=== PATIENT | female | born 1930 | race Two or more races ===

== ENCOUNTER 2016-07-02 22:17 | Inpatient (IN) | payer MEDICARE, MEDICAID ==
[~2016-07-02] VITALS: Ht 165.1 cm; Wt 98.4 kg
[2016-07-02] MEDS ORDERED: IV NS 0.9% 1,000 ML ONE (22:30)
[2016-07-02] MEDS ORDERED: IV NS 0.9% 1,000 ML BAG IV ONE (22:30)
[2016-07-02] MEDS ORDERED: IV SET PRIMARY 1 EA INFUS.SET MC ONE (22:30)
[2016-07-02 22:56] LABS: DIFF TOTAL % 100 %; HEMATOCRIT 47 % (33-45); HEMOGLOBIN 15.2 g/dL (11.5-14.8); INR 1.16 (0.87-1.13); LYMPHOCYTES # (AUTO) 1.2 /CMM (0.8-4.8); LYMPHOCYTES % (AUTO) 8.2 % (20.0-44.0); MEAN CORPUSCULAR HEMOGLOBIN 29 PG (26.0-33.0); MEAN CORPUSCULAR HGB CONC 32 g/dl (31.0-36.0); MEAN CORPUSCULAR VOLUME 89 fL (82-100); MONOCYTES # (AUTO) 1.2 /CMM (0.1-1.30); MONOCYTES % (AUTO) 8.7 % (2.0-12.0); NEUTROPHILS # (AUTO) 11.8 /CMM (1.8-8.9); NEUTROPHILS % (AUTO) 83.1 % (43.0-81.0); PLATELET COUNT (AUTO) 498 /CMM (150-450); PROTHROMBIN TIME 12.6 SECS (9.5-12.7); RED BLOOD CELL COUNT(AUTO) 5.29 MIL/uL (4.0-5.2); WHITE BLOOD COUNT (AUTO) 14.1 K/uL (4.3-11.0)
[2016-07-02 23:00] LABS: ALBUMIN 3.1 g/dL (3.4-5.0); BILIRUBIN,DIRECT 1.9 mg/dL (0.0-0.2); BILIRUBIN,TOTAL 2.5 mg/dL (0.2-1.0); CALCIUM, SERUM 9.2 mg/dL (8.5-10.1); CREATININE 2.7 mg/dL (0.6-1.3); INDIRECT BILIRUBIN 0.6 mg/dL (0.0-1.1); POTASSIUM 4.8 mmol/L (3.5-5.1)
[2016-07-02 23:12] LABS: TROPONIN I 0.155 ng/mL (0.00-0.056)
[2016-07-02 23:14] LABS: TOTAL PROTEIN, SERUM 7.7 g/dL (6.4-8.2)
[2016-07-02 23:39] LABS: KETONES,URINE NEGATIVE (NEGATIVE); LEUKOCYTE ESTERASE ,URINE NEGATIVE (NEGATIVE); PH,URINE 5.5 (5.0-8.0)
[2016-07-02 23:43] LABS: ADD UA MICROSCOPIC YES
[2016-07-02] MEDS ORDERED: IBUP-1955 PO (23:45)
[2016-07-02] MEDS ORDERED: DICY10CA13 PO (23:45)
[2016-07-02] MEDS ORDERED: OMEG1CAP55 PO (23:45)
[2016-07-02] MEDS ORDERED: GLIM2TAB2 PO (23:45)
[2016-07-02] MEDS ORDERED: CALC500T51 PO (23:45)
[2016-07-02] MEDS ORDERED: SITA1TAB6 PO (23:45)
[2016-07-02] MEDS ORDERED: ESOM40CA PO (23:45)
[2016-07-02] MEDS ORDERED: CAPT25TA3 PO (23:45)
[2016-07-02] MEDS ORDERED: COLC0.6T69 PO (23:45)
[2016-07-02] MEDS ORDERED: LORA10TA50 PO (23:45)
[2016-07-02] MEDS ORDERED: MELO-264 PO (23:45)
[2016-07-02 23:55] LABS: ADD URINE CULTURE NO; WBC,URINE 0-2 /HPF (0-3)
[2016-07-03] VITALS (7 sets, daily range): BP systolic 128–150; BP diastolic 61–97
[2016-07-03] MEDS ORDERED: ASPIRIN 325 MG TABLET PO ONE
[2016-07-03] MEDS ORDERED: ASPIRIN 325 MG TABLET ONE (00:07)
[2016-07-03] MEDS ORDERED: IV NS 0.9% 1,000 ML IV PRN ×2 (00:37→09:23)
[2016-07-03] MEDS ORDERED: Z GUARD REMEDY 2 OZ OINT TP PRN (01:00)
[2016-07-03] MEDS ORDERED: ONDANSETRON HCL/PF 4 MG/2 ML VIAL IVP PRN (01:00)
[2016-07-03] MEDS ORDERED: MAG HYDROX/AL HYDROX/SIMETH 30 ML UDC PO PRN (01:00)
[2016-07-03] MEDS ORDERED: ACETAMINOPHEN 325 MG TABLET PO PRN (01:00)
[2016-07-03] MEDS ORDERED: ENOXAPARIN SODIUM 30 MG/0.3 ML DISP.SYRIN SQ SCH ×2 (01:00→21:00)
[2016-07-03] MEDS ORDERED: HYDROCODONE/APAP 5/325MG 1 EACH TABLET PO PRN (01:00)
[2016-07-03] MEDS ORDERED: MAGNESIUM HYDROXIDE 30 ML UDC PO PRN (01:00)
[2016-07-03] MEDS ORDERED: ENOXAPARIN SODIUM 30 MG/0.3 ML DISP.SYRIN ONE (01:20)
[2016-07-03] MEDS ORDERED: DEXTROSE 50%-WATER 50 ML DISP.SYRIN IV PRN (01:30)
[2016-07-03] MEDS ORDERED: IV SET PRIMARY PUMP SET 1 EA INFUS.SET MC ONE (05:06)
[2016-07-03] MEDS ORDERED: IV NS 0.9% 1,000 ML ONE (05:06)
[2016-07-03] MEDS: BLOOD SUGAR DIAGNOSTIC 1 EACH STRIP VI SCH ×4 (05:47→21:57)
[2016-07-03] MEDS: CALCIUM CARBONATE (1250) 500 MG TABLET PO SCH (08:43)
[2016-07-03] MEDS: ASPIRIN 325 MG TABLET PO SCH (08:43)
[2016-07-03] MEDS: LORATADINE 10 MG TABLET PO SCH (08:43)
[2016-07-03] MEDS: PANTOPRAZOLE 40 MG TABLET.DR PO SCH (08:44)
[2016-07-03 09:49] LABS: THYROID STIMULATING HORMONE 2.812 uIU/mL (0.358-3.74)
[2016-07-03] MEDS: DICYCLOMINE HCL 10 MG CAPSULE PO SCH ×2 (10:10→16:27)
[2016-07-03] MEDS: COLCHICINE 0.6 MG TABLET PO SCH (11:23)
[2016-07-03] MEDS: INSULIN REGULAR, HUMAN 100 UNIT/ML 3 ML VIAL SQ PRN ×2 (11:35→17:42)
[2016-07-03] MEDS: IV NS 0.9% 1,000 ML IV PRN (15:18)
[2016-07-03 16:12] LABS: KETONES,URINE TRACE (NEGATIVE); LEUKOCYTE ESTERASE ,URINE TRACE (NEGATIVE)
[2016-07-03 16:30] LABS: ADD UA MICROSCOPIC YES
[2016-07-03 16:31] LABS: CREATININE, URINE 107.7 MG/DL (30.0-125.0); URINE TOTAL PROTEIN 62.3 mg/dL (0-11.9)
[2016-07-03 16:34] LABS: ADD URINE CULTURE YES
[2016-07-03] MEDS: HEPARIN SODIUM, PORCINE 5000 UNITS/1 ML VIAL SQ SCH (21:57)
[2016-07-03] MEDS: *INSULIN REGULAR(HUMULIN R)HUM 100 UNIT/ML VIAL SQ PRN (22:08)
[2016-07-04] VITALS (7 sets, daily range): BP systolic 140–151; BP diastolic 62–84
[2016-07-04 06:39] LABS: BASOPHILS % (AUTO) 0.3 % (0.0-2.0); DIFF TOTAL % 100 %; EOSINOPHILS # (AUTO) 0.1 /CMM (0.0-0.7); EOSINOPHILS % (AUTO) 1.2 % (0.0-6.0); HEMATOCRIT 38 % (33-45); HEMOGLOBIN 12.7 g/dL (11.5-14.8); LYMPHOCYTES # (AUTO) 0.9 /CMM (0.8-4.8); LYMPHOCYTES % (AUTO) 10.3 % (20.0-44.0); MEAN CORPUSCULAR HEMOGLOBIN 30 PG (26.0-33.0); MEAN CORPUSCULAR HGB CONC 33 g/dl (31.0-36.0); MEAN CORPUSCULAR VOLUME 89 fL (82-100); MONOCYTES # (AUTO) 0.5 /CMM (0.1-1.30); NEUTROPHILS # (AUTO) 7.3 /CMM (1.8-8.9); NEUTROPHILS % (AUTO) 82.2 % (43.0-81.0); PLATELET COUNT (AUTO) 365 /CMM (150-450); WHITE BLOOD COUNT (AUTO) 8.9 K/uL (4.3-11.0)
[2016-07-04 06:43] LABS: ALBUMIN 2.2 g/dL (3.4-5.0); BILIRUBIN,TOTAL 1.6 mg/dL (0.2-1.0); CALCIUM, SERUM 8.1 mg/dL (8.5-10.1); CREATININE 1.2 mg/dL (0.6-1.3); PHOSPHORUS 2.6 mg/dL (2.5-4.9); POTASSIUM 3.9 mmol/L (3.5-5.1); TOTAL PROTEIN, SERUM 5.5 g/dL (6.4-8.2)
[2016-07-04] MEDS: BLOOD SUGAR DIAGNOSTIC 1 EACH STRIP VI SCH ×4 (07:30→22:28)
[2016-07-04] MEDS: PANTOPRAZOLE 40 MG TABLET.DR PO SCH (08:22)
[2016-07-04] MEDS: ASPIRIN 325 MG TABLET PO SCH (08:22)
[2016-07-04] MEDS: CALCIUM CARBONATE (1250) 500 MG TABLET PO SCH (08:22)
[2016-07-04] MEDS: COLCHICINE 0.6 MG TABLET PO SCH (08:22)
[2016-07-04] MEDS: LORATADINE 10 MG TABLET PO SCH (08:22)
[2016-07-04] MEDS: DICYCLOMINE HCL 10 MG CAPSULE PO SCH ×2 (08:22→17:05)
[2016-07-04] MEDS: HEPARIN SODIUM, PORCINE 5000 UNITS/1 ML VIAL SQ SCH ×2 (08:31→21:29)
[2016-07-04 09:51] LABS: CREATINE KINASE MB 8.4 ng/mL (0-3.6)
[2016-07-04] MEDS: IV NS 0.9% 1,000 ML IV PRN (11:27)
[2016-07-04] MEDS: INSULIN REGULAR, HUMAN 100 UNIT/ML 3 ML VIAL SQ PRN ×2 (12:14→17:03)
[2016-07-04 15:48] LABS: KETONES,URINE NEGATIVE (NEGATIVE); LEUKOCYTE ESTERASE ,URINE NEGATIVE (NEGATIVE)
[2016-07-04 15:51] LABS: ADD UA MICROSCOPIC YES
[2016-07-04 15:55] LABS: CREATININE, URINE 68.5 MG/DL (30.0-125.0); URINE TOTAL PROTEIN 43.7 mg/dL (0-11.9)
[2016-07-04 16:08] LABS: ADD URINE CULTURE NO; RBC,URINE 0-2 /HPF (0-2); WBC,URINE 0-2 /HPF (0-3)
[2016-07-05] VITALS (7 sets, daily range): BP systolic 124–152; BP diastolic 41–87
[2016-07-05] MEDS ORDERED: DILTIAZEM HCL 50 MG IV IV PRN (01:00)
[2016-07-05] MEDS ORDERED: DILTIAZEM HCL 25 MG IV ONE (01:19)
[2016-07-05] MEDS: ASPIRIN 325 MG TABLET PO SCH (08:14)
[2016-07-05] MEDS: DICYCLOMINE HCL 10 MG CAPSULE PO SCH ×2 (08:14→16:57)
[2016-07-05] MEDS: CALCIUM CARBONATE (1250) 500 MG TABLET PO SCH (08:14)
[2016-07-05] MEDS: PANTOPRAZOLE 40 MG TABLET.DR PO SCH (08:14)
[2016-07-05] MEDS: COLCHICINE 0.6 MG TABLET PO SCH (08:14)
[2016-07-05] MEDS: LORATADINE 10 MG TABLET PO SCH (08:14)
[2016-07-05] MEDS: BLOOD SUGAR DIAGNOSTIC 1 EACH STRIP VI SCH ×4 (08:15→21:25)
[2016-07-05 08:18] LABS: BASOPHILS % (AUTO) 0.2 % (0.0-2.0); DIFF TOTAL % 100 %; EOSINOPHILS # (AUTO) 0.4 /CMM (0.0-0.7); EOSINOPHILS % (AUTO) 5.2 % (0.0-6.0); HEMATOCRIT 39 % (33-45); LYMPHOCYTES # (AUTO) 1.7 /CMM (0.8-4.8); LYMPHOCYTES % (AUTO) 20.9 % (20.0-44.0); MEAN CORPUSCULAR HEMOGLOBIN 30 PG (26.0-33.0); MEAN CORPUSCULAR HGB CONC 33 g/dl (31.0-36.0); MEAN CORPUSCULAR VOLUME 90 fL (82-100); MONOCYTES # (AUTO) 0.8 /CMM (0.1-1.30); MONOCYTES % (AUTO) 10.3 % (2.0-12.0); NEUTROPHILS # (AUTO) 5.1 /CMM (1.8-8.9); NEUTROPHILS % (AUTO) 63.4 % (43.0-81.0); PLATELET COUNT (AUTO) 362 /CMM (150-450); RED BLOOD CELL COUNT(AUTO) 4.36 MIL/uL (4.0-5.2); WHITE BLOOD COUNT (AUTO) 8.1 K/uL (4.3-11.0)
[2016-07-05 08:24] LABS: TROPONIN I 0.076 ng/mL (0.00-0.056)
[2016-07-05] MEDS: HEPARIN SODIUM, PORCINE 5000 UNITS/1 ML VIAL SQ SCH ×2 (08:24→21:23)
[2016-07-05 08:25] LABS: BILIRUBIN,TOTAL 0.6 mg/dL (0.2-1.0); CALCIUM, SERUM 8.3 mg/dL (8.5-10.1); POTASSIUM 4.2 mmol/L (3.5-5.1); TOTAL PROTEIN, SERUM 5.4 g/dL (6.4-8.2)
[2016-07-05 10:48] LABS: INR 1.26 (0.87-1.13); PROTHROMBIN TIME 13.6 SECS (9.5-12.7)
[2016-07-05 11:09] LABS: *SPE ALBUMIN 2.3 g/dL (2.9-4.4)
[2016-07-05] MEDS: DILTIAZEM HCL CD 240 MG PO SCH (11:16)
[2016-07-05] MEDS: IV NS 0.9% 1,000 ML IV PRN ×2 (11:20→22:36)
[2016-07-05 12:10] LABS: HEPATITIS C VIRUS AB <0.1 s/co ratio (0.0-0.9); PTH, INTACT 70 pg/mL (15-65)
[2016-07-05] MEDS ORDERED: IOHEXOL 50 ML IV ONE (12:19)
[2016-07-05] MEDS ORDERED: ROCURONIUM BROMIDE 50 MG/5 ML ONE (13:00)
[2016-07-05] MEDS ORDERED: [UNRECOGNIZED DRUG - OTHER] MC ONE (13:16)
[2016-07-05] MEDS ORDERED: GLUCAGON,HUMAN RECOMBINANT 1 MG/VIAL VIAL ONE (13:38)
[2016-07-05] MEDS: INSULIN REGULAR, HUMAN 100 UNIT/ML 3 ML VIAL SQ PRN (18:02)
[2016-07-05 18:08] LABS: *ANAANTI-SCLERODERMA-70 AB <0.2 AI (0.0-0.9)
[2016-07-05] MEDS: *INSULIN REGULAR(HUMULIN R)HUM 100 UNIT/ML VIAL SQ PRN (21:25)
[2016-07-06] VITALS: BP 133/79
[2016-07-06 04:05] VITALS: BP 148/83
[2016-07-06] MEDS: BLOOD SUGAR DIAGNOSTIC 1 EACH STRIP VI SCH ×3 (05:48→17:30)
[2016-07-06] MEDS: IV NS 0.9% 1,000 ML IV PRN (05:49)
[2016-07-06] MEDS: INSULIN REGULAR, HUMAN 100 UNIT/ML 3 ML VIAL SQ PRN ×2 (05:52→11:52)
[2016-07-06 06:57] VITALS: BP 139/80
[2016-07-06 07:06] LABS: BASOPHILS % (AUTO) 0.2 % (0.0-2.0); DIFF TOTAL % 100 %; EOSINOPHILS % (AUTO) 0.1 % (0.0-6.0); HEMATOCRIT 40 % (33-45); HEMOGLOBIN 13.1 g/dL (11.5-14.8); LYMPHOCYTES # (AUTO) 1.4 /CMM (0.8-4.8); LYMPHOCYTES % (AUTO) 14.7 % (20.0-44.0); MEAN CORPUSCULAR HEMOGLOBIN 29 PG (26.0-33.0); MEAN CORPUSCULAR HGB CONC 33 g/dl (31.0-36.0); MEAN CORPUSCULAR VOLUME 91 fL (82-100); MONOCYTES # (AUTO) 0.9 /CMM (0.1-1.30); MONOCYTES % (AUTO) 9.1 % (2.0-12.0); NEUTROPHILS # (AUTO) 7.3 /CMM (1.8-8.9); NEUTROPHILS % (AUTO) 75.9 % (43.0-81.0); PLATELET COUNT (AUTO) 475 /CMM (150-450); RED BLOOD CELL COUNT(AUTO) 4.45 MIL/uL (4.0-5.2); WHITE BLOOD COUNT (AUTO) 9.6 K/uL (4.3-11.0)
[2016-07-06 07:25] LABS: POTASSIUM 4.8 mmol/L (3.5-5.1)
[2016-07-06] MEDS: PANTOPRAZOLE 40 MG TABLET.DR PO SCH (07:50)
[2016-07-06 08:00] VITALS: BP 144/82
[2016-07-06 08:14] LABS: ALBUMIN 2.2 g/dL (3.4-5.0); BILIRUBIN,TOTAL 0.5 mg/dL (0.2-1.0); CALCIUM, SERUM 8.3 mg/dL (8.5-10.1); CREATININE 0.9 mg/dL (0.6-1.3); PHOSPHORUS 2.1 mg/dL (2.5-4.9); TOTAL PROTEIN, SERUM 5.8 g/dL (6.4-8.2)
[2016-07-06] MEDS: COLCHICINE 0.6 MG TABLET PO SCH (08:38)
[2016-07-06] MEDS: DICYCLOMINE HCL 10 MG CAPSULE PO SCH ×2 (08:38→17:00)
[2016-07-06] MEDS: ASPIRIN 325 MG TABLET PO SCH (08:38)
[2016-07-06] MEDS: LORATADINE 10 MG TABLET PO SCH (08:38)
[2016-07-06] MEDS: CALCIUM CARBONATE (1250) 500 MG TABLET PO SCH (08:38)
[2016-07-06] MEDS: HEPARIN SODIUM, PORCINE 5000 UNITS/1 ML VIAL SQ SCH (08:39)
[2016-07-06] MEDS: DILTIAZEM HCL CD 240 MG PO SCH (08:40)
[2016-07-06] MEDS ORDERED: SECONDARY IV SET 1 EA INFUS.SET MC ONE (08:52)
[2016-07-06] MEDS: NEUTRA PHOS 1 POWD.PACKET PO SCH ×2 (09:07→17:00)
[2016-07-06] MEDS: Magnesium 1GM/D5W 100ML PREMIX 100 ML IV SCH ×2 (09:07→10:15)
[2016-07-06] MEDS ORDERED: hydrALAZINE HCL 25 MG TABLET PO SCH (10:00)
[2016-07-06 16:00] VITALS: BP 115/50
== END 2016-07-06 18:40 | DRG 557 ==
LOC: ER 22:19 → TELE 07-03 00:03 → TELE-TD 07-05 01:11 → TELE1 07-05 10:31 → TELE 07-05 16:41
PROVIDERS: ADMIT Internal Medicine; ATTEND Internal Medicine
DX: M62.82 Rhabdomyolysis (principal); I21.4 Non-ST elevation (NSTEMI) myocardial infarction; N17.9 Acute kidney failure, unspecified; E87.1 Hypo-osmolality and hyponatremia; E11.9 Type 2 diabetes mellitus without complications; G20 Parkinson's disease; K72.90 Hepatic failure, unspecified without coma; E83.51 Hypocalcemia; I11.9 Hypertensive heart disease without heart failure; I25.2 Old myocardial infarction; J45.909 Unspecified asthma, uncomplicated; K80.50 Calculus of bile duct without cholangitis or cholecystitis without obstruction; Z90.49 Acquired absence of other specified parts of digestive tract
CPT/HCPCS: 36415; 70450-TC; 71010-TC; 74000-TC; 74181-TC; 76705-TC; 80048-TC; 80053-TC; 80061-TC; 80074; 80076-TC; 81000-TC; 82550-TC; 82553-TC; 82570-TC; 82962-TC; 83735-TC; 83970; 84100-TC; 84155; 84155-TC; 84165; 84300-TC; 84439-TC; 84443-TC; 84484-TC; 85025-TC; 85652-TC; 85730-TC; 86140-TC; 86225; 86235; 87081-TC; 87086-TC; 87186-TC; 93307-TC; 97001-TC; 97003-TC; 97110-TC; 97116-TC; 97530-TC; A4606; A6253; J1100; J1610; J1644; J1650; J1815; J2405; J2704; J2710; J3475; J3490; J7030; Q9967; Z7610

== ENCOUNTER 2016-09-27 14:47 | Emergency (ER) | payer MEDICARE, MEDICAID ==
[~2016-09-27] VITALS: Ht 162.6 cm; Wt 90.7 kg
[2016-09-27 14:47] VITALS: BP 149/83
[~2016-09-27 14:47] MED LIST: CALC500T51 PO; CAPT25TA3 PO; COLC0.6T69 PO; DICY10CA13 PO; ESOM40CA PO; GLIM2TAB2 PO; IBUP-1955 PO; LORA10TA50 PO; MELO-264 PO; OMEG1CAP55 PO; SITA1TAB6 PO
[2016-09-27] MEDS ORDERED: diphenhydrAMINE HCL 25 MG CAPSULE ONE (15:11)
[2016-09-27] MEDS ORDERED: diphenhydrAMINE HCL 25 MG CAPSULE PO ONE (15:30)
== END 2016-09-27 15:32 | disposition home or self-care (01) ==
LOC: ER 14:50
DX: L50.9 Urticaria, unspecified (principal); I10 Essential (primary) hypertension; E11.9 Type 2 diabetes mellitus without complications
CPT/HCPCS: 99283; A4606; Q0163; Z7610

== ENCOUNTER 2016-11-19 18:36 | Inpatient (IN) | payer MEDICARE, MEDICAID ==
[~2016-11-19] VITALS: Ht 157.5 cm; Wt 99.4 kg
--- NOTE | 2016-11-19 18:50 | NUR ---
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 COMPLAINS OF GENERALIZED BODY PAIN AND WEAKNESS. PT AAOX2. FAMILY MEMBERS GAVE INFO. MD AT BS FOR EVAL. NOTED FEBRILE. OTHER VSS. SAFETY AND COMFORT MEASURES PROVIDED. WILL MONITOR.
[2016-11-19] MEDS ORDERED: ACETAMINOPHEN ES 500 MG TABLET ONE (18:56)
[2016-11-19] MEDS ORDERED: ONDANSETRON HCL/PF 4 MG/2 ML VIAL ONE (18:56)
[2016-11-19 18:58] LABS: BASOPHILS # (AUTO) 0.1 /CMM (0.0-0.2); BASOPHILS % (AUTO) 0.5 % (0.0-2.0); EOSINOPHILS % (AUTO) 0.2 % (0.0-6.0); HEMATOCRIT 41 % (33-45); HEMOGLOBIN 13.8 g/dL (11.5-14.8); LYMPHOCYTES # (AUTO) 2.4 /CMM (0.8-4.8); LYMPHOCYTES % (AUTO) 12.3 % (20.0-44.0); MEAN CORPUSCULAR HEMOGLOBIN 29 PG (26.0-33.0); MEAN CORPUSCULAR HGB CONC 33 g/dl (31.0-36.0); MEAN CORPUSCULAR VOLUME 88 fL (82-100); MONOCYTES # (AUTO) 1.1 /CMM (0.1-1.30); MONOCYTES % (AUTO) 5.7 % (2.0-12.0); NEUTROPHILS % (AUTO) 81.3 % (43.0-81.0); PLATELET COUNT (AUTO) 553 /CMM (150-450); RDW COEFFICIENT OF VARIATION 13.9 (11.5-15.0); WHITE BLOOD COUNT (AUTO) 19.7 K/uL (4.3-11.0)
[2016-11-19] MEDS ORDERED: ACETAMINOPHEN ES 500 MG TABLET PO ONE (19:00)
[2016-11-19] MEDS ORDERED: ONDANSETRON HCL/PF 4 MG/2 ML VIAL IVP ONE (19:00)
--- NOTE | 2016-11-19 19:00 | NUR ---
IV ACCESS STARTED. BLOOD AND CULTURES DRAWN, SENT. FC INITIATED, URINE SAMPLE OBTAINED, SENT. PT MEDICATED ORDERED.
[2016-11-19] MEDS ORDERED: IV SET PRIMARY 1 EA INFUS.SET MC ONE ×2 (19:02→20:55)
[2016-11-19] MEDS ORDERED: IV NS 0.9% 1,000 ML ONE ×2 (19:02→19:03)
[2016-11-19] MEDS ORDERED: IV SET PRIMARY PUMP SET 1 EA INFUS.SET MC ONE ×3 (19:03→22:10)
--- NOTE | 2016-11-19 19:05 | NUR ---
REPORT REC'D FROM ARJUN GUEVARA
--- NOTE | 2016-11-19 19:12 | NUR ---
FAMILY MEMBER PHONE NUMBER- Addendum: 11/19/16 at 1912 by TONIA SARAI VILLAR SON PHONE NUMBER-
[2016-11-19 19:18] LABS: INR 1.16 (0.87-1.13); PROTHROMBIN TIME 12.5 SECS (9.5-12.7); TROPONIN I < 0.017 ng/mL (0.00-0.056)
[2016-11-19 19:24] LABS: APPEARANCE,URINE CLEAR (CLEAR); BILIRUBIN,URINE NEGATIVE (NEGATIVE); BLOOD, URINE NEGATIVE Ery/uL (NEGATIVE); COLOR,URINE YELLOW (YELLOW); KETONES,URINE NEGATIVE (NEGATIVE); LEUKOCYTE ESTERASE ,URINE NEGATIVE (NEGATIVE); NITRITE, URINE POSITIVE (NEGATIVE); PH,URINE 5.5 (5.0-8.0); PROTEIN,URINE NEGATIVE (NEGATIVE); UGLUCOSE NEGATIVE (NEGATIVE); UROBILINOGEN,URINE 0.2 EU/dL (0.2)
[2016-11-19] MEDS ORDERED: IV NS 0.9% 1,000 ML BAG IV ONE ×2 (19:30→20:00)
[2016-11-19 19:31] LABS: BACTERIA,URINE Few /HPF (None Seen); RBC,URINE 0-2 /HPF (0-2); SQUAMOUS EPITHELIAL CELL,UR Few /HPF (None Seen)
--- NOTE | 2016-11-19 19:33 | NUR ---
PT IS HEAVELY CLAUSTROPHOBIC, HAS ANXIETY, AND IS IN A LOT OF PAIN. PT IS NOT ABLE TO LAY DOWN FLAT. WAS INFORMED.
[2016-11-19] MEDS ORDERED: MORPHINE SULFATE INJ 4 MG/ML DISP.SYRIN ONE (19:40)
[2016-11-19 19:45] LABS: CALCIUM, SERUM 9.4 mg/dL (8.5-10.1); CARBON DIOXIDE 25 mmol/L (21-32); CHLORIDE 92 mmol/L (98-107); CREATININE 1.2 mg/dL (0.6-1.3); GLUCOSE 198 mg/dL (74-106); POTASSIUM 4.3 mmol/L (3.5-5.1); SODIUM SERUM 132 mmol/L (136-145); UREA NITROGEN, BLOOD 41 mg/dL (7-18)
[2016-11-19 19:49] LABS: ALANINE AMINOTRANSFERASE 21 U/L (12-78); ALBUMIN 2.9 g/dL (3.4-5.0); ALKALINE PHOSPHATASE 120 U/L (46-116); ASPARTATE AMINOTRANSFERASE 15 U/L (15-37); BILIRUBIN,DIRECT 0.2 mg/dL (0.0-0.2); BILIRUBIN,TOTAL 0.6 mg/dL (0.2-1.0); TOTAL PROTEIN, SERUM 7.7 g/dL (6.4-8.2)
--- NOTE | 2016-11-19 19:52 | NUR ---
[place] [facility] [place] [facility]
[2016-11-19] MEDS ORDERED: PIPERACILLIN /TAZOBACTAM 3.375 G VIAL IV ONE (19:58)
[2016-11-19] MEDS ORDERED: MORPHINE SULFATE INJ 2 MG/ML DISP.SYRIN IV ONE (20:00)
[2016-11-19] MEDS ORDERED: PIPERACILLIN /TAZOBACTAM 3.375 G in IV D5W 50 ML IV ONE (20:00)
--- NOTE | 2016-11-19 20:20 | NUR ---
PT RETURNED FROM CT. PT'S 1ST LITER IS INFUSING AND 2ND LITER NOW INFUSING.
[2016-11-19 20:30] LABS: THYROID STIMULATING HORMONE 12.626 uIU/mL (0.358-3.74)
[2016-11-19] MEDS ORDERED: IV LR 1000 ML 1,000 ML IV ONE (20:30)
[2016-11-19] MEDS ORDERED: IV LR 1000 ML 1,000 ML ONE (20:55)
[2016-11-19] MEDS ORDERED: DIATRIZOATE MEGLUMINE 300 ML BOTTLE UR ONE (21:10)
--- NOTE | 2016-11-19 21:29 | NUR ---
PT IS GOING TO [facility].
[2016-11-19] MEDS ORDERED: ASPIRIN 325 MG TABLET ONE (21:53)
--- NOTE | 2016-11-19 21:58 | NUR ---
PT RETURNED FROM CT.
[2016-11-19] MEDS ORDERED: ASPIRIN 325 MG TABLET PO ONE (22:00)
--- NOTE | 2016-11-19 22:00 | NUR ---
PT REC/D ASPIRIN 325 MG AT HOME AT 1700, PER DAUGHTER IN LAW. DR. ALLISON NOTIFIED.
--- NOTE | 2016-11-19 22:01 | NUR ---
CALLED [facility]- DR. CRUZ WAS PAGED.
[2016-11-19] MEDS ORDERED: VANCOMYCIN 1 GM VIAL ONE (22:11)
--- NOTE | 2016-11-19 22:13 | NUR ---
CUFF TURNER MACHINE OPERATOR WAS REPAGED.
--- NOTE | 2016-11-19 22:18 | NUR ---
DR ALLISON ON THE PHONE WITH DR CRUZ, [facility] SUBWAY TRAIN OPERATOR DOCTOR.
--- NOTE | 2016-11-19 22:28 | NUR ---
CALLING REPORT TO [facility].
[2016-11-19] MEDS ORDERED: VANCOMYCIN 1 GM in IV D5W 250 ML IV ONE (22:30)
[2016-11-19 22:31] LABS: ABG OXYGEN SATURATION 94.6 % (92.0-98.5); ABG PCO2 41.9 mmHg (35.0-45.0); ABG PH 7.407 (7.350-7.450); ABG PO2 79.4 mmHg (75.0-100.0); AaDO2 99.7 mmHg; COHb 0.9 % (0.5-1.5); MetHb 0.3 % (0.0-1.5); O2Hb 93.5 % (94.0-97.0); SITE, ABG Left Brachial; VENT MODE, BG N/C 3L
--- NOTE | 2016-11-19 22:58 | NUR ---
CALLED RADIOLOGY RE: CT ABD READ
--- NOTE | 2016-11-19 23:13 | NUR ---
UROLOGIST DR. TONIE DIAMOND WAS PAGED.
--- NOTE | 2016-11-19 23:15 | NUR ---
APPROX 540ML CONCENTRATED URINE DRAINED FROM CÁRDENAS BAG.
[2016-11-19] MEDS ORDERED: MORPHINE SULFATE INJ 2 MG/ML DISP.SYRIN IV PRN (23:30)
[2016-11-19] MEDS ORDERED: ONDANSETRON HCL/PF 4 MG/2 ML VIAL IVP PRN (23:30)
[2016-11-19] MEDS ORDERED: ACETAMINOPHEN 325 MG TABLET PO PRN (23:30)
--- NOTE | 2016-11-19 23:50 | NUR ---
dr leavitt repaged
--- NOTE | 2016-11-20 00:24 | NUR ---
DR. CRUZ IS AT THE BEDSIDE.
--- NOTE | 2016-11-20 00:38 | NUR ---
DR. CRUZ IS SPEAKING WITH DR. LOREDO.
--- NOTE | 2016-11-20 00:44 | NUR ---
CALL RASTA, PT'S GRANDDAUGHTER WITH ANY QUESTIONS OR FOR CONCENTS/AUTHORIZATION, PER PT'S SON AND DAUGHTER-IN -LAW. CALL RASTA AT [phone]
--- NOTE | 2016-11-20 00:55 | NUR ---
PT'S DAUGHTER IN LAW AND SON LEFT THE BEDSIDE. THEY WERE TOLD THE PT'S ROOM NUMBER AND NUMBER TO CALL TO CHECK IN ON THE PT.
--- NOTE | 2016-11-20 01:29 | NUR ---
PT APPEARS TO BE RESTING COMFORTABLY WITH NO S/S OF PAIN AND DISTRESS. RESP EVEN AND UNLABORED. PT IS ON 2L O2 VIA NC.
[2016-11-20] MEDS ORDERED: IV SET PRIMARY PUMP SET 1 EA INFUS.SET MC ONE (01:34)
[2016-11-20] MEDS ORDERED: IV 1/2NS 1000 ML 1,000 ML IV ONE (01:34)
[2016-11-20] MEDS: IV 1/2NS 1000 ML 1,000 ML IV PRN (01:37)
--- NOTE | 2016-11-20 01:46 | NUR ---
[facility] ORDERS STARTED IN ER PER DR. LOREDO S/P CONVERSATION WITH DR. CRUZ. DR. LOREDO IS STILL WAITING FOR UROLOGY CONSULT.
--- NOTE | 2016-11-20 01:58 | NUR ---
3RD TIME PT PULLED OF PULSE OX. NEW PULSE OX APPLIED. PT ADJUSTED IN BED IN AN ATTEMPT TO MAKE HER MORE COMFORTABLE.
--- NOTE | 2016-11-20 02:30 | NUR ---
PT APPEARS TO BE SLEEPING PULSE OX REMOVED. PT PULLED OUT IV, BP CUFF, AND IS RESTING. PT WAS CLEANED UP, NEW LINENS APPLIED, AND DIAPER APPLIED.
--- NOTE | 2016-11-20 02:35 | NUR ---
20G IV STARTED IN RFA.
--- NOTE | 2016-11-20 02:35 | NUR ---
RFA COVERED WITH KERLEX AND TAPE.
--- NOTE | 2016-11-20 02:37 | NUR ---
PT UNRAVELING THE DRESSING OVER THE IV. DRESSING REAPPLIED.
--- NOTE | 2016-11-20 03:00 | NUR ---
PT IS PULLING OF BP CUFF AND MONITOR LEADS. PT IS PULLING OFF IV DRESSING. PT WAS STOPPED AND SLEVE APPLIED OVER NEW DRESSING.
--- NOTE | 2016-11-20 03:20 | NUR ---
PT TRYING TO UNDO THE IV DRESSING. PT WAS STOPPED AND DRESSING FIXED.
--- NOTE | 2016-11-20 04:00 | NUR ---
PT IS PULLING OFF HER GOWN AND MONITOR LEADS/PULSE OX. PT IS TRYING TO PULL OFF IV. PT WAS PLACED BACK ON THE MONITOR AND CONTINUOUS PULSE OX. PT APPEARS TO BE RESTING COMFORTABLY.
--- NOTE | 2016-11-20 04:10 | NUR ---
PT IS SPEAKING IN BELGIAN AND WE ARE NOT ABLE TO UNDERSTAND PT.
--- NOTE | 2016-11-20 04:15 | NUR ---
ED, ETCH[employer] BOARDS IS AT THE BEDSIDE TRANSLATING FOR THE PT AND DR. LOREDO. PT IS AA&O X1.
[2016-11-20] MEDS ORDERED: HALOPERIDOL LACTATE INJ 5 MG/ML VIAL ONE (04:48)
[2016-11-20] MEDS ORDERED: PIPERACILLIN /TAZOBACTAM 3.375 G VIAL IV ONE ×2 (04:50→04:57)
[2016-11-20] MEDS ORDERED: IV SET PRIMARY 1 EA INFUS.SET MC ONE (04:50)
--- NOTE | 2016-11-20 04:56 | NUR ---
VERBAL ORDERS PER DR. LOREDO TO GIVE PT IVP HALDOL 2.5MG ONE TIME NOW. PT MEDICATED.
[2016-11-20] MEDS ORDERED: HALOPERIDOL LACTATE INJ 5 MG/ML VIAL IV ONE (05:00)
[2016-11-20] MEDS ORDERED: PIPERACILLIN /TAZOBACTAM 3.375 G in IV D5W 50 ML IV SCH (05:00)
--- NOTE | 2016-11-20 05:00 | NUR ---
PT PULLED OUT IV. PULLED OFF GOWN, BP CUFF AND PULSE OX. PT WAS CLEANED AND NEW GOWN APPLIED.
--- NOTE | 2016-11-20 05:30 | NUR ---
20G IV STARTED IN RFA.
--- NOTE | 2016-11-20 05:41 | NUR ---
Dr Rob osborne.
--- NOTE | 2016-11-20 05:50 | NUR ---
PT REC'D ZOSYN 3.375GM IVPB RFA VIA 20G.
[2016-11-20] MEDS ORDERED: ONDANSETRON HCL/PF 4 MG/2 ML VIAL ONE (05:58)
[2016-11-20] MEDS ORDERED: MORPHINE SULFATE INJ 2 MG/ML DISP.SYRIN ONE (05:58)
--- NOTE | 2016-11-20 06:00 | NUR ---
PT IS C/O PAIN IN HER RT KNEE.
--- NOTE | 2016-11-20 06:05 | NUR ---
EMPTIED CÁRDENAS BAG. 600ML YELLOW URINE OUTPUT NOTED.
--- NOTE | 2016-11-20 06:19 | NUR ---
DR. LOREDO SPOKE TO DR. CRUZ RE: ADMITTING. PT. DR. CRUZ IS OK WITH PT BEING ADMITTED AT THIS TIME.
[2016-11-20 06:25] VITALS: BP 136/56
--- NOTE | 2016-11-20 06:30 | NUR ---
PT TRANSPORTED TO [facility] PER PROTOCOL.
--- NOTE | 2016-11-20 07:39 | NUR ---
[facility]/RECEIVING MANAGER PT WAS RECEIVED FROM ER ON A MONITOR. PT WAS PLACED INTO BED. PT WAS ORT TO ROOM. HOWEVER PT APPEARS CONFUSED. BED ALARM IS ON. REPORT GIVEN TO NURSE, PT HAD PULLED IV. PT CLEANED UP GIVEN CALL LIGHT, BED ALARM IS ON STILL. WITHIN MINUTES OF WALKING OUT OF ROOM TO CONTINUE TO GIVE REPORT TO NURSE, PT WAS TRYING TO GET OUT OF BED. CHARGE NURSE AWARE OF THE NONCOMPLIANCE, CHARGE NURSE TRIED TO GET SITTER FOR PT'S SAFETY, HOWEVER DOES NOT HAVE ONE AVAILABLE. NURSE AWARE OF THIS.
[2016-11-20] MEDS ORDERED: MONT10TA22 PO (07:40)
[2016-11-20] MEDS ORDERED: LEVO125T PO (07:40)
[2016-11-20] MEDS ORDERED: PYRI100T6 PO (07:40)
[2016-11-20] MEDS ORDERED: AMLO5TAB2 PO (07:40)
[2016-11-20] MEDS ORDERED: ICOS1CAP PO (07:40)
[2016-11-20] MEDS ORDERED: DULO60CA45 PO (07:40)
[2016-11-20] MEDS ORDERED: LINA145C PO (07:40)
[2016-11-20] MEDS ORDERED: ASPI-991 PO (07:40)
[2016-11-20] MEDS ORDERED: MYRBETRIQ PO (07:40)
[2016-11-20] MEDS ORDERED: CARV6.252 PO (07:40)
[2016-11-20 08:00] VITALS: BP 124/54
--- NOTE | 2016-11-20 08:00 | NUR ---
PT RECVD STABLE ON RA, VITALS ARE STABLE. SHE IS ANXIOUS AND FORGETFUL, REMOVES CLOTHES, PULLED OUT IV'S FROM E.R. RIGHT WRIST 20G INSERTED WITH GOOD BLOOD RETURN. GRAND DAUGHTER AT BEDSIDE FOR TRANSLATION, THE PT IS ORIENTED TO PLACE (SHE KNOWS SHE IS IN THE HOSPITAL) BUT SHE IS FORGETFUL, SHE HAS WORSENING DEMENTIA. 1/2 NS AT 70ML/H INTO NEW IV
[2016-11-20 08:26] LABS: BASOPHILS # (AUTO) 0.1 /CMM (0.0-0.2); BASOPHILS % (AUTO) 0.4 % (0.0-2.0); EOSINOPHILS # (AUTO) 0.2 /CMM (0.0-0.7); EOSINOPHILS % (AUTO) 1.3 % (0.0-6.0); HEMATOCRIT 38 % (33-45); HEMOGLOBIN 12.4 g/dL (11.5-14.8); LYMPHOCYTES # (AUTO) 1.6 /CMM (0.8-4.8); LYMPHOCYTES % (AUTO) 9.2 % (20.0-44.0); MEAN CORPUSCULAR HEMOGLOBIN 29 PG (26.0-33.0); MEAN CORPUSCULAR HGB CONC 33 g/dl (31.0-36.0); MEAN CORPUSCULAR VOLUME 87 fL (82-100); MONOCYTES # (AUTO) 1.2 /CMM (0.1-1.30); MONOCYTES % (AUTO) 6.9 % (2.0-12.0); NEUTROPHILS # (AUTO) 13.8 /CMM (1.8-8.9); NEUTROPHILS % (AUTO) 82.2 % (43.0-81.0); PLATELET COUNT (AUTO) 467 /CMM (150-450); RDW COEFFICIENT OF VARIATION 13.5 (11.5-15.0); RED BLOOD CELL COUNT(AUTO) 4.32 MIL/uL (4.0-5.2); WHITE BLOOD COUNT (AUTO) 16.9 K/uL (4.3-11.0)
[2016-11-20 08:37] LABS: ALANINE AMINOTRANSFERASE 20 U/L (12-78); ALBUMIN 2.6 g/dL (3.4-5.0); ALKALINE PHOSPHATASE 99 U/L (46-116); ASPARTATE AMINOTRANSFERASE 15 U/L (15-37); BILIRUBIN,TOTAL 0.9 mg/dL (0.2-1.0); CALCIUM, SERUM 9.1 mg/dL (8.5-10.1); CARBON DIOXIDE 25 mmol/L (21-32); CHLORIDE 97 mmol/L (98-107); GLUCOSE 141 mg/dL (74-106); MAGNESIUM 1.5 mg/dL (1.8-2.4); POTASSIUM 3.5 mmol/L (3.5-5.1); SODIUM SERUM 132 mmol/L (136-145); TOTAL PROTEIN, SERUM 6.8 g/dL (6.4-8.2); UREA NITROGEN, BLOOD 34 mg/dL (7-18)
[2016-11-20] MEDS: DOCUSATE SODIUM 100 MG CAPSULE PO SCH ×2 (08:44→17:08)
[2016-11-20] MEDS: PANTOPRAZOLE 40 MG TABLET.DR PO SCH (08:44)
--- NOTE | 2016-11-20 10:11 | NUR ---
PT PULLED OUT RIGHT WRIST IV. CHANGED GOWN AND BED SHEETS, BED BATH GIVEN. SHE IS CALM BUT FORGETFUL AND PULLS AT LINES. ASKED TOURS HOSTESS IF WE CAN GET A SITTER, BUT SHE STATES WE CANNOT. I STATIONED MY COMPUTER NEXT TO THE ROOM, TO TRY TO MAINTAIN LINE OF SIGHT MUCH POSSIBLE. RIGHT UPPER ARM 22 RIGHT INSERTED, IVF RECONNECTED. 2 GRAMS MAG REPLACEMENT ORDERED.
[2016-11-20] MEDS ORDERED: FEE PK DOSING 1 MIN EA MC ONE (10:40)
[2016-11-20] MEDS ORDERED: SECONDARY IV SET 1 EA INFUS.SET MC ONE ×2 (11:25→11:41)
[2016-11-20] MEDS: NAPROXEN 375 MG TABLET.DR PO SCH ×2 (11:39→17:08)
[2016-11-20] MEDS: PIPERACILLIN /TAZOBACTAM 2.25 G in IV D5W 50 ML IV SCH ×2 (11:39→17:08)
[2016-11-20 12:00] VITALS: BP 127/57
[2016-11-20] MEDS: Magnesium 1GM/D5W 100ML PREMIX 100 ML IV SCH ×2 (13:02→14:00)
[2016-11-20 16:00] VITALS: BP 131/62
--- NOTE | 2016-11-20 19:20 | NUR ---
RN INITIAL NOTE RECEIVED PT IN NO ACUTE DISTRESS IN BED. PT IS A/O X 3 BUT WITH PERIODS OF CONFUSION. PT IS ON RA AND TOLERATING WELL WITH O2 SAT @ 98%. PT DENIES ANY SOB, DIFFICULTY BREATHING OR PAIN AT THIS TIME. ALL NEEDS MET ALL ORDERS CARRIED OUT. PT HAS THEODORE MIDLINE THAT IS CLEAN DRY AND INTACT. PT HAS HX OF PULLING OUT LINES. WILL STATION CLOSE TO TO MONITOR. PT HAS 1/2 NS @ 70ML/HR. BED IN LOW LOCK POSITION WITH RIALS UP X 2. CALL LIGHT WITHIN REACH AND ALL SAFETY MEASURES ENSURED AND CARRIED OUT. WILL CONTINUE TO MONITOR PT.
[2016-11-20 20:00] VITALS: BP 150/86
[2016-11-20] MEDS ORDERED: VANCOMYCIN 1 GM in IV D5W 250 ML IV SCH (23:00)
--- NOTE | 2016-11-21 | NUR ---
RN NOTE PT REMOVED MIDLINE AND CÁRDENAS CATHETER. PERFORMED ROUNDS PRIOR TO REMOVAL. PT WAS CALM AND SLEEPING IN BED. AFTER LEAVING PT ROOM HEARD BED ALARM AND RUSHED TO ROOM TO FIND PT REMOVED GOWN AND REMOVED CÁRDENAS CATHETER AND MIDLINE. CHARGE NURSE NOTIFIED. PLACED RIGHT FOREARM 22G WITH POSITIVE BLOOD RETURN AND FLUSHES WELL. WILL MONITOR PT CLOSELY SO PT DOESN'T REMOVE IV.
[2016-11-21] MEDS: PIPERACILLIN /TAZOBACTAM 2.25 G in IV D5W 50 ML IV SCH ×3 (01:10→12:34)
[2016-11-21] MEDS: IV 1/2NS 1000 ML 1,000 ML IV PRN ×2 (01:10→20:51)
[2016-11-21 04:00] VITALS: BP 145/58
--- NOTE | 2016-11-21 06:32 | NUR ---
rn SPOKE TO MD CRUZ, AWARE PT PULLING OUT HER IV LINE ALL NIGHT. WITH ORDER FOR SITTER. BARREL DEDENTING MACHINE OPERATOR AWARE.
--- NOTE | 2016-11-21 06:57 | NUR ---
RN CLOSING NOTE RECEIVED PT IN NO ACUTE DISTRESS IN BED. PT DID NOT HAVE ANY SIGNIFICANT CHANGE IN CONDITION DURING SHIFT. PT REMOVED MULTIPLE IV'S AND CÁRDENAS CATHETER. REQUESTED AND RECEIVED ORDERS FOR SITTER AT BEDSIDE. WILL ENDORSE TO AM RN FOR CONTINUITY OF CARE.
[2016-11-21 07:41] LABS: CALCIUM, SERUM 9.1 mg/dL (8.5-10.1); CARBON DIOXIDE 29 mmol/L (21-32); CHLORIDE 100 mmol/L (98-107); CREATININE 0.9 mg/dL (0.6-1.3); GLUCOSE 130 mg/dL (74-106); MAGNESIUM 1.8 mg/dL (1.8-2.4); SODIUM SERUM 136 mmol/L (136-145); UREA NITROGEN, BLOOD 28 mg/dL (7-18)
[2016-11-21 08:00] VITALS: BP 125/42
[2016-11-21 09:06] LABS: BASOPHILS % (AUTO) 0.1 % (0.0-2.0); EOSINOPHILS # (AUTO) 0.5 /CMM (0.0-0.7); EOSINOPHILS % (AUTO) 3.6 % (0.0-6.0); HEMATOCRIT 35 % (33-45); HEMOGLOBIN 11.5 g/dL (11.5-14.8); LYMPHOCYTES # (AUTO) 1.3 /CMM (0.8-4.8); LYMPHOCYTES % (AUTO) 9.9 % (20.0-44.0); MEAN CORPUSCULAR HEMOGLOBIN 29 PG (26.0-33.0); MEAN CORPUSCULAR HGB CONC 33 g/dl (31.0-36.0); MEAN CORPUSCULAR VOLUME 87 fL (82-100); MONOCYTES # (AUTO) 1.1 /CMM (0.1-1.30); MONOCYTES % (AUTO) 8.3 % (2.0-12.0); NEUTROPHILS # (AUTO) 10.6 /CMM (1.8-8.9); NEUTROPHILS % (AUTO) 78.1 % (43.0-81.0); PLATELET COUNT (AUTO) 487 /CMM (150-450); RDW COEFFICIENT OF VARIATION 14.2 (11.5-15.0); RED BLOOD CELL COUNT(AUTO) 4.01 MIL/uL (4.0-5.2); WHITE BLOOD COUNT (AUTO) 13.6 K/uL (4.3-11.0)
[2016-11-21] MEDS: DOCUSATE SODIUM 100 MG CAPSULE PO SCH ×2 (09:11→18:05)
[2016-11-21] MEDS: PANTOPRAZOLE 40 MG TABLET.DR PO SCH (09:11)
[2016-11-21] MEDS: NAPROXEN 375 MG TABLET.DR PO SCH ×2 (09:11→18:05)
--- NOTE | 2016-11-21 15:31 | NUR ---
RN NOTES PT TESTED POSITIVE FOR MRSA, URINE CX = E COLI, DR SORENSEN NOTIFIED.
[2016-11-21 16:00] VITALS: BP 128/39
[2016-11-21] MEDS ORDERED: SECONDARY IV SET 1 EA INFUS.SET MC ONE (17:55)
[2016-11-21] MEDS: CEFTRIAXONE 1 G in IV D5W 50 ML IV SCH (18:06)
--- NOTE | 2016-11-21 19:15 | NUR ---
RN OPENING NOTES: RECEIVED PT ON A CHAIR, AWAKE ALOX2 VERBALLY RESPONSIVE IN VIETNAMESE. PATIENT REQUIRES SITTER, TO SIT FOR PATIENT AT THIS TIME WITH PERIODS OF CONFUSION AND OVERESTIMATION, IS A FALL RISK AND WITH TENDENCY TO PULL OUT IV LINES ETC. ON O2 THERAPY AT 2LPM TOLERATED WELL, NOT IN APPARENT DISTRESS. WITH AN EPISODE OF BM VIA A COMMODE. IV ACCESS ON RFA G22 AND LFA G22 PATENT AND INTACT, IVF INFUSING ORDERED. SAFETY MEASURES ENSURED AT ALL TIMES. FREQUENT REORIENTATION RENDERED. TO CONTINUE TO MONITOR.
[2016-11-21 20:00] VITALS: BP 140/52
[2016-11-21] MEDS: MUPIROCIN OINT 2% 22 GM TUBE SCH (20:51)
--- NOTE | 2016-11-22 | NUR ---
RN NOTES: PATIENT NOTED TO BE CALM AND COOPERATIVE AT THIS TIME. SAFETY MEASURES ENSURED AT ALL TIMES. CONTACT ISOLATION PREV OBSERVED. TO MONITOR FOR BEHAVIOR AND SAFETY.
[2016-11-22 04:00] VITALS: BP 103/55
--- NOTE | 2016-11-22 06:58 | NUR ---
RN CLOSING NOTES: PT REMAINED IN BED AT THIS TIME NOT IN APPARENT DISTRESS, SITTER FOR PATIENT. IV ACCESS REMAINED INTACT. KEPT PN O2 THERAPY.TOLERATED WELL. FREQUENT REORIENTATION RENDERED. SKIN CARE RENDERED. SAFETY MEASURES ENSURED AT ALL TIMES. AM LABS DRAWN,RESULTS PENDING. CONTINUOUSLY MONITORED ACCORDINGLY. TO ENDORSE TO AM SHIFT RN.
--- NOTE | 2016-11-22 07:30 | NUR ---
RN OPENING NOTES: RECEIVED PT ON A CHAIR, AWAKE ALOX2 VERBALLY RESPONSIVE IN ARMENIAN. PATIENT REQUIRES SITTER, TO SIT FOR PATIENT AT THIS TIME WITH PERIODS OF CONFUSION AND OVERESTIMATION, IS A FALL RISK AND WITH TENDENCY TO PULL OUT IV LINES ETC. ON O2 THERAPY AT 2LPM TOLERATED WELL, NOT IN APPARENT DISTRESS. WITH AN EPISODE OF BM VIA A COMMODE. IV ACCESS ON RFA G22 AND LFA G22 PATENT AND INTACT, IVF INFUSING ORDERED. SAFETY MEASURES ENSURED AT ALL TIMES. FREQUENT REORIENTATION RENDERED. TO CONTINUE TO MONITOR.
[2016-11-22 07:32] LABS: CALCIUM, SERUM 9.3 mg/dL (8.5-10.1); CARBON DIOXIDE 28 mmol/L (21-32); CHLORIDE 101 mmol/L (98-107); CREATININE 0.8 mg/dL (0.6-1.3); GLUCOSE 119 mg/dL (74-106); UREA NITROGEN, BLOOD 28 mg/dL (7-18)
[2016-11-22 07:33] LABS: MAGNESIUM 1.7 mg/dL (1.8-2.4); PHOSPHORUS 4.5 mg/dL (2.5-4.9)
[2016-11-22 07:48] LABS: SODIUM SERUM 136 mmol/L (136-145)
[2016-11-22 07:53] LABS: POTASSIUM 5.1 mmol/L (3.5-5.1)
[2016-11-22 08:00] VITALS: BP 90/45
[2016-11-22 08:07] LABS: BASOPHILS % (AUTO) 0.1 % (0.0-2.0); EOSINOPHILS # (AUTO) 0.8 /CMM (0.0-0.7); EOSINOPHILS % (AUTO) 7.8 % (0.0-6.0); HEMATOCRIT 36 % (33-45); HEMOGLOBIN 11.9 g/dL (11.5-14.8); LYMPHOCYTES # (AUTO) 1.9 /CMM (0.8-4.8); LYMPHOCYTES % (AUTO) 18.2 % (20.0-44.0); MEAN CORPUSCULAR HEMOGLOBIN 30 PG (26.0-33.0); MEAN CORPUSCULAR HGB CONC 33 g/dl (31.0-36.0); MEAN CORPUSCULAR VOLUME 89 fL (82-100); MONOCYTES # (AUTO) 0.9 /CMM (0.1-1.30); MONOCYTES % (AUTO) 8.6 % (2.0-12.0); NEUTROPHILS # (AUTO) 6.9 /CMM (1.8-8.9); NEUTROPHILS % (AUTO) 65.3 % (43.0-81.0); PLATELET COUNT (AUTO) 540 /CMM (150-450); RDW COEFFICIENT OF VARIATION 14.2 (11.5-15.0); RED BLOOD CELL COUNT(AUTO) 4.03 MIL/uL (4.0-5.2); WHITE BLOOD COUNT (AUTO) 10.6 K/uL (4.3-11.0)
[2016-11-22] MEDS: LEVOTHYROXINE SODIUM 125 MCG TABLET PO SCH (08:43)
[2016-11-22] MEDS: PANTOPRAZOLE 40 MG TABLET.DR PO SCH (08:43)
[2016-11-22] MEDS: ASPIRIN EC 81 MG TABLET.DR PO SCH (08:43)
[2016-11-22] MEDS: COLCHICINE 0.6 MG TABLET PO SCH (08:43)
[2016-11-22] MEDS: AMLODIPINE BESYLATE 5 MG TABLET PO SCH (08:43)
[2016-11-22] MEDS: CARVEDILOL 6.25 MG TABLET PO SCH ×2 (08:44→16:12)
[2016-11-22] MEDS: DOCUSATE SODIUM 100 MG CAPSULE PO SCH ×2 (08:44→16:12)
[2016-11-22] MEDS: MONTELUKAST SODIUM (10MG) 10 MG TABLET PO SCH (08:44)
[2016-11-22] MEDS: MUPIROCIN OINT 2% 22 GM TUBE SCH ×2 (09:00→21:02)
[2016-11-22] MEDS: NAPROXEN 375 MG TABLET.DR PO SCH ×2 (09:05→17:38)
[2016-11-22] MEDS: Magnesium 1GM/D5W 100ML PREMIX 100 ML IV SCH ×2 (11:52→13:20)
[2016-11-22] MEDS: IV 1/2NS 1000 ML 1,000 ML IV PRN (13:20)
[2016-11-22 16:00] VITALS: BP 159/52
[2016-11-22] MEDS: CEFTRIAXONE 1 G in IV D5W 50 ML IV SCH (19:07)
--- NOTE | 2016-11-22 19:30 | NUR ---
MS RN INITIAL NOTE RECEIVED REPORT FROM BENITA DÍAZ. PT IN BED. MONGOLIAN SPEAKING. A/A/O X2. LUNG SOUNDS CRACKLES, O2 3L NC. BOWEL SOUNDS PRESENT, BRP WITH ASSIST, SITTER AT BEDSIDE. IV INFILTRATED. IV WILL BE REPLACED. PULSES PRESENT. REPOSITIONED FOR COMFORT. BED IN LOW LOCKED POSITION CALL LIGHT WITHIN REACH. WILL CONTINUE TO MONITOR.
[2016-11-22 20:00] VITALS: BP 166/90
[2016-11-22] MEDS ORDERED: ENOXAPARIN SODIUM 40 MG/0.4 ML DISP.SYRIN SQ SCH (21:30)
[2016-11-22] MEDS ORDERED: ENOXAPARIN SODIUM 40 MG/0.4 ML DISP.SYRIN SQ ONE (22:21)
[2016-11-23] MEDS ORDERED: IPRATROPIUM NEB FS 0.5 MG/2.5 ML AMPUL.NEB ONE (00:29)
[2016-11-23] MEDS ORDERED: ALBUTEROL FS 2.5 MG/3 ML VIAL.NEB ONE (00:29)
[2016-11-23] MEDS ORDERED: IPRATROPIUM BROMIDE 14 GM INHALER (or 12.9 GM) IH PRN (00:30)
[2016-11-23] MEDS ORDERED: IPRATROPIUM NEB FS 0.5 MG/2.5 ML AMPUL.NEB NEB PRN ×2 (00:30→07:50)
[2016-11-23] MEDS: ALBUTEROL FS 2.5 MG/3 ML VIAL.NEB NEB PRN ×2 (00:40→13:12)
[2016-11-23 04:00] VITALS: BP 142/66
[2016-11-23] MEDS ORDERED: IV SET PRIMARY PUMP SET 1 EA INFUS.SET MC ONE (04:41)
[2016-11-23] MEDS: IV 1/2NS 1000 ML 1,000 ML IV PRN ×2 (04:53→20:43)
[2016-11-23 07:18] LABS: BASOPHILS % (AUTO) 0.3 % (0.0-2.0); EOSINOPHILS # (AUTO) 0.8 /CMM (0.0-0.7); EOSINOPHILS % (AUTO) 8.5 % (0.0-6.0); HEMATOCRIT 36 % (33-45); LYMPHOCYTES # (AUTO) 2.8 /CMM (0.8-4.8); LYMPHOCYTES % (AUTO) 29.7 % (20.0-44.0); MEAN CORPUSCULAR HEMOGLOBIN 30 PG (26.0-33.0); MEAN CORPUSCULAR HGB CONC 33 g/dl (31.0-36.0); MEAN CORPUSCULAR VOLUME 89 fL (82-100); MONOCYTES # (AUTO) 0.9 /CMM (0.1-1.30); MONOCYTES % (AUTO) 9.8 % (2.0-12.0); NEUTROPHILS # (AUTO) 4.9 /CMM (1.8-8.9); NEUTROPHILS % (AUTO) 51.7 % (43.0-81.0); PLATELET COUNT (AUTO) 576 /CMM (150-450); RDW COEFFICIENT OF VARIATION 14.9 (11.5-15.0); RED BLOOD CELL COUNT(AUTO) 4.08 MIL/uL (4.0-5.2); WHITE BLOOD COUNT (AUTO) 9.4 K/uL (4.3-11.0)
[2016-11-23 07:38] LABS: CALCIUM, SERUM 9.8 mg/dL (8.5-10.1); CARBON DIOXIDE 33 mmol/L (21-32); CHLORIDE 102 mmol/L (98-107); CREATININE 0.7 mg/dL (0.6-1.3); GLUCOSE 119 mg/dL (74-106); MAGNESIUM 1.9 mg/dL (1.8-2.4); PHOSPHORUS 4.3 mg/dL (2.5-4.9); POTASSIUM 4.6 mmol/L (3.5-5.1); SODIUM SERUM 142 mmol/L (136-145); UREA NITROGEN, BLOOD 20 mg/dL (7-18)
[2016-11-23 08:00] VITALS: BP 144/87
[2016-11-23] MEDS: NAPROXEN 375 MG TABLET.DR PO SCH ×2 (10:21→17:09)
[2016-11-23] MEDS: LEVOTHYROXINE SODIUM 125 MCG TABLET PO SCH (10:22)
[2016-11-23] MEDS: CARVEDILOL 6.25 MG TABLET PO SCH ×2 (10:22→17:09)
[2016-11-23] MEDS: COLCHICINE 0.6 MG TABLET PO SCH (10:23)
[2016-11-23] MEDS: AMLODIPINE BESYLATE 5 MG TABLET PO SCH (10:23)
[2016-11-23] MEDS: DOCUSATE SODIUM 100 MG CAPSULE PO SCH ×2 (10:23→17:08)
[2016-11-23] MEDS: PANTOPRAZOLE 40 MG TABLET.DR PO SCH (10:23)
[2016-11-23] MEDS: ASPIRIN EC 81 MG TABLET.DR PO SCH (10:23)
[2016-11-23] MEDS: MONTELUKAST SODIUM (10MG) 10 MG TABLET PO SCH (10:23)
[2016-11-23] MEDS: MUPIROCIN OINT 2% 22 GM TUBE SCH ×2 (10:25→20:44)
[2016-11-23] MEDS: methylPREDNISolone SOD SUCC 40 MG/ML VIAL IV SCH ×2 (13:03→17:08)
[2016-11-23 16:00] VITALS: BP 134/69
[2016-11-23] MEDS: CEFTRIAXONE 1 G in IV D5W 50 ML IV SCH (17:09)
[2016-11-23 20:00] VITALS: BP 178/68
[2016-11-23] MEDS: IPRATROPIUM NEB FS 0.5 MG/2.5 ML AMPUL.NEB NEB SCH (20:01)
[2016-11-23] MEDS: ALBUTEROL FS 2.5 MG/3 ML VIAL.NEB NEB SCH (20:01)
[2016-11-23] MEDS: ENOXAPARIN SODIUM 40 MG/0.4 ML DISP.SYRIN SQ SCH (20:44)
--- NOTE | 2016-11-23 21:00 | NUR ---
MS RN NOTES BP 178/68. REPOSITIONED PT FOR COMFORT. PAGED DR PUTNAM. AWAITING FOR RESPONSE.
--- NOTE | 2016-11-23 21:35 | NUR ---
MS RN NOTES DR PUTNAM CALLED BACK. NOTIFIED HIM RE PT'S BP AND CONDITION. WITH NEW ORDERS MADE.ORDERS NOTED AND CARRIED OUT. WILL CONTINUE TO MONITOR.
[2016-11-23] MEDS ORDERED: LORAZEPAM 1 MG TABLET ONE (21:47)
[2016-11-23] MEDS ORDERED: LORAZEPAM 1 MG TABLET PO ONE (22:00)
[2016-11-24] MEDS: IPRATROPIUM NEB FS 0.5 MG/2.5 ML AMPUL.NEB NEB SCH ×5 (01:30→20:12)
[2016-11-24] MEDS: ALBUTEROL FS 2.5 MG/3 ML VIAL.NEB NEB SCH ×5 (01:30→20:12)
[2016-11-24 04:00] VITALS: BP 162/78
--- NOTE | 2016-11-24 06:49 | NUR ---
MS RN NOTES AWAKE & RESPONSIVE. STILL CONFUSED. NOT IN ANY DISTRESS. NO SOB NOTED. DENIES ANY PAIN OR DISCOMFORT AT THIS TIME. WITH IVF INFUSING WELL. AM CARE DONE. MONITORED ACCORDINGLY. CALL LIGHT WITHIN REACH. BED IN LOWEST POSITION. SR UP X 3 WITH BED ALARM ON FOR SAFETY. WILL ENDORSE TO NEXT SHIFT.
[2016-11-24 08:00] VITALS: BP 130/63
[2016-11-24 08:05] LABS: CALCIUM, SERUM 9.4 mg/dL (8.5-10.1); CARBON DIOXIDE 32 mmol/L (21-32); CHLORIDE 102 mmol/L (98-107); CREATININE 0.6 mg/dL (0.6-1.3); GLUCOSE 123 mg/dL (74-106); POTASSIUM 4.3 mmol/L (3.5-5.1); SODIUM SERUM 141 mmol/L (136-145); UREA NITROGEN, BLOOD 20 mg/dL (7-18)
[2016-11-24] MEDS: COLCHICINE 0.6 MG TABLET PO SCH (08:35)
[2016-11-24] MEDS: DOCUSATE SODIUM 100 MG CAPSULE PO SCH ×2 (08:36→18:25)
[2016-11-24] MEDS: MONTELUKAST SODIUM (10MG) 10 MG TABLET PO SCH (08:36)
[2016-11-24] MEDS: methylPREDNISolone SOD SUCC 40 MG/ML VIAL IV SCH ×3 (08:36→18:24)
[2016-11-24] MEDS: ASPIRIN EC 81 MG TABLET.DR PO SCH (08:36)
[2016-11-24] MEDS: LEVOTHYROXINE SODIUM 125 MCG TABLET PO SCH (08:37)
[2016-11-24] MEDS: AMLODIPINE BESYLATE 5 MG TABLET PO SCH (08:37)
[2016-11-24] MEDS: PANTOPRAZOLE 40 MG TABLET.DR PO SCH (08:37)
[2016-11-24] MEDS: CARVEDILOL 6.25 MG TABLET PO SCH ×2 (08:37→18:26)
[2016-11-24] MEDS: NAPROXEN 375 MG TABLET.DR PO SCH ×2 (08:38→18:25)
[2016-11-24] MEDS: MUPIROCIN OINT 2% 22 GM TUBE SCH ×2 (08:47→21:20)
--- NOTE | 2016-11-24 13:47 | NUR ---
Social service consult requested by Dr. Chadwick regarding pt's home environment and disposition. Per H&P report by Dr. Lamb, patient is a known to him. Pt. is a 86-year-old heavyset Tuvaluan-speaking female, with history of several chronic medical problems and gradually advancing dementia, who was brought to the emergency department of [facility] by her family due to the altered mental status and high fever. According to report patient had fever of 104. Family tells me that in the last few days patient has been complaining of generalized body aches, which is not completely new for her. Family had taken pt. [place] drive [place] the [place] and during the trip patient appeared to be more altered mentally, complaint of bilateral knee pain and generalized body pain, felt nauseous and reportedly vomited. In addition patient has been complaining of moderate headache and abdominal discomfort. Upon arrival to the emergency department patient's vitals were blood pressure 160/64, temperature 98.1 (after Tylenol), pulse 96 and regular, respiratory rate 16 and saturation 96% on room air. CHINO discussed case with family service caseworker Tevin who informed that pt. resides with her son Demi. According to Tevin, the discharge plan is to send pt. to a long-term facility.
[2016-11-24 16:00] VITALS: BP 131/75
[2016-11-24] MEDS: CEFTRIAXONE 1 G in IV D5W 50 ML IV SCH (18:25)
[2016-11-24 20:00] VITALS: BP 169/69
[2016-11-24] MEDS: ENOXAPARIN SODIUM 40 MG/0.4 ML DISP.SYRIN SQ SCH (21:17)
[2016-11-25] MEDS: IPRATROPIUM NEB FS 0.5 MG/2.5 ML AMPUL.NEB NEB SCH ×3 (02:09→13:16)
[2016-11-25] MEDS: ALBUTEROL FS 2.5 MG/3 ML VIAL.NEB NEB SCH ×3 (02:09→13:16)
[2016-11-25 04:00] VITALS: BP 144/61
--- NOTE | 2016-11-25 05:00 | NUR ---
RN NOTE PT PULLED OUT IV. PRESSURE WAS PLACED ON SITE TO REDUCE BLEEDING. WILL ENDORSE TO AM RN. PT HAS DC PLANNING IN THE AM.
--- NOTE | 2016-11-25 07:01 | NUR ---
RN CLOSING NOTE PT REMAINS IN NO ACUTE DISTRESS IN BED. PT DID NOT HAVE ANY SIGNIFICANT CHANGE IN SHIFT. ALL NEEDS MET, ALL ORDERS CARRIED OUT. WILL ENDORSE CARE TO AM RN FOR CONTINUITY OF CARE.
--- NOTE | 2016-11-25 08:01 | NUR ---
MS RN INITIAL NOTE RECEIVED REPORT FROM KATE DÍAZ. PT IN BED. AUSTRIAN SPEAKING. A/O X2. LUNG SOUNDS CRACKLES, O2 3L NC. BOWEL SOUNDS PRESENT, PT ABLE TO AMBULATE WITH ASSIST. IV NO PRESENT PATIENT PULLED OUT AND REFUSED A NEW IV PLACEMENT. TODAY PLAN IS FOR PATIENT TO BE DISCHARGE PER NIGHTSHIFT REPORT MD AND CHARGE NURSE NOTIFIED . PT PULSES PRESENT. REPOSITIONED FOR COMFORT. BED IN LOW LOCKED POSITION CALL LIGHT WITHIN REACH. WILL CONTINUE TO MONITOR.
[2016-11-25 08:19] LABS: CALCIUM, SERUM 9.4 mg/dL (8.5-10.1); CARBON DIOXIDE 34 mmol/L (21-32); CHLORIDE 101 mmol/L (98-107); CREATININE 0.7 mg/dL (0.6-1.3); GLUCOSE 119 mg/dL (74-106); POTASSIUM 4.2 mmol/L (3.5-5.1); SODIUM SERUM 139 mmol/L (136-145); UREA NITROGEN, BLOOD 23 mg/dL (7-18)
[2016-11-25] MEDS: methylPREDNISolone SOD SUCC 40 MG/ML VIAL IV SCH ×2 (09:00→12:50)
[2016-11-25] MEDS: MONTELUKAST SODIUM (10MG) 10 MG TABLET PO SCH (09:03)
[2016-11-25] MEDS: NAPROXEN 375 MG TABLET.DR PO SCH (09:03)
[2016-11-25] MEDS: ASPIRIN EC 81 MG TABLET.DR PO SCH (09:03)
[2016-11-25] MEDS: LEVOTHYROXINE SODIUM 125 MCG TABLET PO SCH (09:03)
[2016-11-25] MEDS: PANTOPRAZOLE 40 MG TABLET.DR PO SCH (09:03)
[2016-11-25] MEDS: DOCUSATE SODIUM 100 MG CAPSULE PO SCH (09:03)
[2016-11-25] MEDS: COLCHICINE 0.6 MG TABLET PO SCH (09:03)
[2016-11-25] MEDS: AMLODIPINE BESYLATE 5 MG TABLET PO SCH (09:06)
[2016-11-25 09:07] VITALS: BP 183/64
[2016-11-25] MEDS: CARVEDILOL 6.25 MG TABLET PO SCH (09:07)
[2016-11-25] MEDS: MUPIROCIN OINT 2% 22 GM TUBE SCH (09:10)
[2016-11-25] MEDS ORDERED: MUPI22OI7 (12:10)
[2016-11-25] MEDS ORDERED: AMLO5TAB2 PO (12:10)
[2016-11-25] MEDS ORDERED: SULF1TAB48 PO (12:10)
[2016-11-25] MEDS ORDERED: MONT10TA22 PO (12:10)
[2016-11-25] MEDS ORDERED: NAPR375T5 PO (12:10)
[2016-11-25] MEDS ORDERED: ENOX40DI SQ (12:10)
[2016-11-25] MEDS ORDERED: LEVO125T PO (12:10)
[2016-11-25] MEDS ORDERED: IPRA0.2S9 NEB (12:10)
[2016-11-25] MEDS ORDERED: DOCU-25 PO (12:10)
[2016-11-25] MEDS ORDERED: Colchicine PO (12:10)
[2016-11-25] MEDS ORDERED: ASPI-991 PO (12:10)
[2016-11-25] MEDS ORDERED: CARV6.252 PO (12:10)
--- NOTE | 2016-11-25 12:38 | NUR ---
MS Rn note Report called to facility and given to the nurse that will be receiving the patient . receiving nurse name Abner. no issues and receiving RN acknowledged understanding. Contact number is [phone].
[2016-11-25] MEDS ORDERED: methylPREDNISolone SOD SUCC IV (13:32)
--- NOTE | 2016-11-25 14:11 | NUR ---
MS ESTIMATION MANAGER NOTE PT discharged from unit in stable condition , vital signs stable report given to EMT services paperwork sent with patient , discharge instruction given exit care provided pt has no iv line ID band removed per policy Report called to facility and given to the nurse that will be receiving the patient . receiving nurse name Abner. no issues and receiving RN acknowledged understanding. Contact number is [phone].
== END 2016-11-25 14:24 | DRG 871 ==
LOC: ER 18:39 → TELE-TD 22:38 → MEDSG1 11-20 10:05
PROVIDERS: ADMIT Internal Medicine; ATTEND Internal Medicine
DX: A41.9 Sepsis, unspecified organism (principal); J15.9 Unspecified bacterial pneumonia; G92 Toxic encephalopathy; N17.0 Acute kidney failure with tubular necrosis; E43 Unspecified severe protein-calorie malnutrition; J96.01 Acute respiratory failure with hypoxia; D68.59 Other primary thrombophilia; E87.1 Hypo-osmolality and hyponatremia; N39.0 Urinary tract infection, site not specified; Z68.41 Body mass index [BMI] 40.0-44.9, adult; J98.11 Atelectasis; B96.20 Unspecified Escherichia coli [E. coli] as the cause of diseases classified elsewhere; D75.89 Other specified diseases of blood and blood-forming organs; G30.9 Alzheimer's disease, unspecified; F02.80 Dementia in other diseases classified elsewhere, unspecified severity, without behavioral disturbance, psychotic disturbance, mood disturbance, and anxiety; I25.10 Atherosclerotic heart disease of native coronary artery without angina pectoris; I25.2 Old myocardial infarction; K21.9 Gastro-esophageal reflux disease without esophagitis; E11.9 Type 2 diabetes mellitus without complications; E03.9 Hypothyroidism, unspecified; E66.01 Morbid (severe) obesity due to excess calories; G89.29 Other chronic pain; E86.0 Dehydration; M19.90 Unspecified osteoarthritis, unspecified site; M85.80 Other specified disorders of bone density and structure, unspecified site; M47.896 Other spondylosis, lumbar region; M10.9 Gout, unspecified; R65.20 Severe sepsis without septic shock; Z22.322 Carrier or suspected carrier of Methicillin resistant Staphylococcus aureus; F39 Unspecified mood [affective] disorder; J44.9 Chronic obstructive pulmonary disease, unspecified; N32.89 Other specified disorders of bladder; J45.909 Unspecified asthma, uncomplicated; M51.36 Other intervertebral disc degeneration, lumbar region; I11.0 Hypertensive heart disease with heart failure; I50.9 Heart failure, unspecified
CPT/HCPCS: 36415; 36600; 70450-TC; 71010-TC; 72192-TC; 80048-TC; 80053-TC; 80076-TC; 81000-TC; 82803-TC; 82962-TC; 83605-TC; 83735-TC; 83880; 84100-TC; 84443-TC; 84484-TC; 85025-TC; 85730-TC; 86140-TC; 87040-TC; 87081-TC; 87086-TC; 87186-TC; 94799-TC; 97001-TC; A4606; A9698; J0696; J1630; J1650; J2270; J2405; J2543; J2920; J3370; J3475; J3490; J7030; J7060; J7120; Z7610

== ENCOUNTER 2017-06-09 10:28 | Inpatient (IN) | payer MEDICARE, MEDICAID ==
[~2017-06-09] VITALS: Ht 157.5 cm; Wt 102.5 kg
[~2017-06-09 10:28] MED LIST changes: +AMLO5TAB2 PO; +ASPI-1152 PO; -CALC500T51 PO; -CAPT25TA3 PO; +CARV6.252 PO; -COLC0.6T69 PO; +Colchicine PO; -DICY10CA13 PO; +DOCU-141 PO; +ENOX40DI SQ; -IBUP-1955 PO; +IPRA0.2S9 NEB; +LEVO125T PO; -LORA10TA50 PO; -MELO-264 PO; +MONT10TA22 PO; +MUPI22OI7; +NAPR375T5 PO; -OMEG1CAP55 PO; +SULF1TAB48 PO; +methylPREDNISolone SOD SUCC IV
--- NOTE | 2017-06-09 10:35 | NUR ---
PRESENTS TO ER C/O PERSISTENT COUGH X SEVERAL MONTHS, GETTING WORSE,C/O DIFFICULTY BREATHING. A/OX 4. BREATHING EVEN AND UNLABORED, AUDIBLE WHEEZING. NO DISTRESS. VITALS STABLE. SAFETY AND COMFORT MEASURES IN PLACE. AWAITING MD ORDERS.
--- NOTE | 2017-06-09 10:50 | NUR ---
NEW IV STARTED ON RAC, 18 G. BLOOD DRAWN AND SENT TO LAB.
[2017-06-09 11:04] LABS: BASOPHILS % (AUTO) 0.4 % (0.0-2.0); EOSINOPHILS # (AUTO) 0.7 /CMM (0.0-0.7); EOSINOPHILS % (AUTO) 8.1 % (0.0-6.0); HEMATOCRIT 42 % (33-45); HEMOGLOBIN 14.3 g/dL (11.5-14.8); LYMPHOCYTES # (AUTO) 2.6 /CMM (0.8-4.8); LYMPHOCYTES % (AUTO) 31.7 % (20.0-44.0); MEAN CORPUSCULAR HEMOGLOBIN 30 PG (26.0-33.0); MEAN CORPUSCULAR HGB CONC 34 g/dl (31.0-36.0); MEAN CORPUSCULAR VOLUME 88 fL (82-100); MONOCYTES # (AUTO) 0.7 /CMM (0.1-1.30); MONOCYTES % (AUTO) 8.8 % (2.0-12.0); NEUTROPHILS # (AUTO) 4.1 /CMM (1.8-8.9); PLATELET COUNT (AUTO) 410 /CMM (150-450); RDW COEFFICIENT OF VARIATION 16.3 (11.5-15.0); RED BLOOD CELL COUNT(AUTO) 4.84 MIL/uL (4.0-5.2); WHITE BLOOD COUNT (AUTO) 8.1 K/uL (4.3-11.0)
--- NOTE | 2017-06-09 11:04 | NUR ---
GRIZZLY WORKER AT BEDSIDE
[2017-06-09 11:14] LABS: CARBON DIOXIDE 35 mmol/L (21-32); CHLORIDE 102 mmol/L (98-107); GLUCOSE 159 mg/dL (74-106); POTASSIUM 4.3 mmol/L (3.5-5.1); SODIUM SERUM 140 mmol/L (136-145); UREA NITROGEN, BLOOD 26 mg/dL (7-18)
[2017-06-09 11:16] LABS: INR 1.1 (0.87-1.13); PROTHROMBIN TIME 11.4 SECS (9.5-12.7)
[2017-06-09 11:22] LABS: TROPONIN I 0.018 ng/mL (0.00-0.056)
[2017-06-09 11:27] LABS: ALANINE AMINOTRANSFERASE 22 U/L (12-78); ALBUMIN 3.4 g/dL (3.4-5.0); ALKALINE PHOSPHATASE 137 U/L (46-116); ASPARTATE AMINOTRANSFERASE 19 U/L (15-37); B-TYPE NATRIURETIC PEPTIDE 359 PG/ML (0-125); BILIRUBIN,DIRECT 0.2 mg/dL (0.0-0.2); BILIRUBIN,TOTAL 0.7 mg/dL (0.2-1.0); TOTAL PROTEIN, SERUM 7.1 g/dL (6.4-8.2)
--- NOTE | 2017-06-09 11:49 | NUR ---
URINE OBTAINED VIA STRAIGHT CATH PER MD ORDERS. SPECIMEN SENT TO LAB.
[2017-06-09 11:59] LABS: APPEARANCE,URINE Slightly Cloudy (CLEAR); BILIRUBIN,URINE SMALL (NEGATIVE); BLOOD, URINE Negative Ery/uL (NEGATIVE); KETONES,URINE Trace (NEGATIVE); LEUKOCYTE ESTERASE ,URINE Negative (NEGATIVE); NITRITE, URINE Positive (NEGATIVE); PROTEIN,URINE Trace mg/dl (NEGATIVE); UGLUCOSE Negative (NEGATIVE)
[2017-06-09 12:01] LABS: COLOR,URINE Dark Yellow (YELLOW)
[2017-06-09] MEDS ORDERED: PYRI50TA74 PO (12:01)
[2017-06-09] MEDS ORDERED: DICY10CA13 PO (12:01)
[2017-06-09] MEDS ORDERED: MYRBETRIQ PO (12:01)
[2017-06-09] MEDS ORDERED: MECL-138 PO (12:01)
[2017-06-09] MEDS ORDERED: VORT10TA PO (12:01)
[2017-06-09] MEDS ORDERED: ASPI-1169 PO (12:01)
[2017-06-09] MEDS ORDERED: DULO60CA45 PO (12:01)
[2017-06-09] MEDS ORDERED: LINA145C PO (12:01)
[2017-06-09] MEDS ORDERED: CHOL100044 PO (12:01)
[2017-06-09] MEDS ORDERED: COLC0.6T67 PO (12:01)
[2017-06-09] MEDS ORDERED: IBUP-1955 PO (12:01)
[2017-06-09] MEDS ORDERED: MONT10TA22 PO (12:01)
[2017-06-09] MEDS ORDERED: TRIA0.252 PO (12:01)
[2017-06-09] MEDS ORDERED: CARV12.52 PO (12:01)
[2017-06-09] MEDS ORDERED: TELM1TAB2 PO (12:01)
[2017-06-09] MEDS ORDERED: FOLI1TAB16 PO (12:01)
[2017-06-09] MEDS ORDERED: DOCU-141 PO (12:01)
[2017-06-09] MEDS ORDERED: LEVO150T8 PO (12:01)
[2017-06-09] MEDS ORDERED: AMLO5TAB2 PO (12:01)
[2017-06-09] MEDS ORDERED: FLUT1DIS3 IH (12:01)
[2017-06-09] MEDS ORDERED: MELO-107 PO (12:01)
[2017-06-09] MEDS ORDERED: MEMA1CAP2 PO (12:01)
[2017-06-09] MEDS ORDERED: CYAN10009 PO (12:01)
[2017-06-09] MEDS ORDERED: ICOS1CAP PO (12:01)
[2017-06-09] MEDS ORDERED: CLON0.1T PO (12:01)
[2017-06-09 12:11] LABS: BACTERIA,URINE Rare /HPF (None Seen); SQUAMOUS EPITHELIAL CELL,UR Few /HPF (None Seen); WBC,URINE 0-3 /HPF (0-3)
[2017-06-09] MEDS ORDERED: NITROGLYCERIN PACKET 1 GM PACKET ONE (12:18)
[2017-06-09] MEDS ORDERED: FUROSEMIDE 40 MG/4 ML VIAL ONE (12:18)
[2017-06-09] MEDS ORDERED: ASPIRIN 325 MG TABLET ONE (12:18)
[2017-06-09] MEDS ORDERED: HYDROCODONE/APAP 5/325MG 1 EACH TABLET PO PRN (12:30)
[2017-06-09] MEDS ORDERED: IBUPROFEN 600 MG TABLET PO PRN (12:30)
[2017-06-09] MEDS ORDERED: ZOLPIDEM TARTRATE 5 MG TABLET PO PRN (12:30)
[2017-06-09] MEDS ORDERED: DEXTROSE 50%-WATER 50 ML DISP.SYRIN IV PRN (12:30)
[2017-06-09] MEDS ORDERED: HYDROCODONE/APAP 10/325MG 1 EA TABLET PO PRN (12:30)
[2017-06-09] MEDS ORDERED: CLONIDINE HCL 0.1 MG TABLET PO PRN (12:30)
[2017-06-09] MEDS ORDERED: FUROSEMIDE 40 MG/4 ML VIAL IV ONE (12:30)
[2017-06-09] MEDS ORDERED: MAG HYDROX/AL HYDROX/SIMETH 30 ML UDC PO PRN (12:30)
[2017-06-09] MEDS ORDERED: ACETAMINOPHEN 325 MG TABLET PO PRN (12:30)
[2017-06-09] MEDS ORDERED: ONDANSETRON HCL/PF 4 MG/2 ML VIAL IVP PRN (12:30)
[2017-06-09] MEDS ORDERED: MAGNESIUM HYDROXIDE 30 ML UDC PO PRN (12:30)
[2017-06-09] MEDS ORDERED: Z GUARD REMEDY 2 OZ OINT TP PRN (12:30)
[2017-06-09] MEDS ORDERED: ASPIRIN 325 MG TABLET PO ONE (12:30)
[2017-06-09] MEDS ORDERED: NITROGLYCERIN PACKET 1 GM PACKET TD ONE (12:30)
[2017-06-09 13:00] VITALS: BP 166/75
[2017-06-09] MEDS ORDERED: MECLIZINE HCL 25 MG TABLET PO PRN (13:00)
[2017-06-09] MEDS: NITROGLYCERIN PACKET 1 GM PACKET TOP SCH ×2 (13:00→21:50)
--- NOTE | 2017-06-09 13:00 | NUR ---
REPORT GIVEN TO KEILA DÍAZ FOR JEAN CARLOS UPON ADMISSION.
--- NOTE | 2017-06-09 13:19 | NUR ---
PATIENT TRANSPORTED TO [facility] VIA ACLS PROTOCOL. RNKEILA TO PROVIDE JEAN CARLOS.
[2017-06-09] MEDS ORDERED: Icosapent Ethyl (Vascepa) 1 GM PO SCH (13:30)
--- NOTE | 2017-06-09 13:30 | NUR ---
LINEN SORTER NOTES ADMITTED THIS PATIENT FROM ER, DX CHF PER DR. SORENSEN, AAOX 3, ACCOMPANIED BY SON, ON RA, NOT IN ANY DISTRESS, SATURATING 94% ON RA, TELEMETRY READS SB HR 59, DENIES ANY CHEST PAIN OR DISCOMFORT, RFA G18 IV ACCESS, FLUSHES WELL, SITE CLEAR, PHOTOS OF SKIN ISSUES TAKEN. PLACED IN CHART. CARDIAC DIET, ON DIAPERS, MADE COMFORTABLE, FALL PRECAUTIONS, SAFETY MEASURES IN PLACE, UNIT ORIENTATION DONE AND USE OF CALL LIGHT, INSTRUCTED TO CALL FOR ASSIST. SAFETY MEASURES IN PLACE. WILL CONTINUE TO MONITOR.
[2017-06-09] MEDS ORDERED: MYRBETRIQ 25 MG PO SCH (14:00)
[2017-06-09] MEDS: CYANOCOBALAMIN 500 MCG TABLET PO SCH (14:28)
[2017-06-09] MEDS: CARVEDILOL 12.5 MG TABLET PO SCH ×2 (14:29→16:50)
[2017-06-09] MEDS: ENOXAPARIN SODIUM 30 MG/0.3 ML DISP.SYRIN SQ SCH (14:34)
[2017-06-09 14:50] LABS: THYROID STIMULATING HORMONE 27.301 uIU/mL (0.358-3.74)
[2017-06-09 16:00] VITALS: BP 143/66
[2017-06-09] MEDS: DICYCLOMINE HCL 10 MG CAPSULE PO SCH (16:49)
[2017-06-09] MEDS: BLOOD SUGAR DIAGNOSTIC 1 EACH STRIP VI SCH ×2 (16:50→22:46)
[2017-06-09] MEDS: DOCUSATE SODIUM 100 MG CAPSULE PO SCH (16:50)
[2017-06-09] MEDS: INSULIN REGULAR, HUMAN 100 UNIT/ML 3 ML VIAL SQ PRN (16:58)
[2017-06-09] MEDS ORDERED: FLUTICASONE/SALMETEROL DISKUS IH SCH (17:00)
[2017-06-09] MEDS: methylPREDNISolone SOD SUCC 40 MG/ML VIAL IV SCH (18:03)
--- NOTE | 2017-06-09 18:23 | NUR ---
CREMATORY OPERATOR CLOSING NOTES PT RESTING IN BED, AAOX 3, ON RA, NOT IN ANY DISTRESS, SATURATING 94% ON RA, TELEMETRY READS SB HR 58, DENIES ANY CHEST PAIN OR DISCOMFORT, RFA G18 IV ACCESS, FLUSHES WELL, SITE CLEAR, CARDIAC DIET, ON DIAPERS, MADE COMFORTABLE, FALL PRECAUTIONS, SAFETY MEASURES IN PLACE, CALL LIGHT WITHIN REACH, INSTRUCTED TO CALL FOR ASSIST. SAFETY MEASURES IN PLACE. NO OTHER SIGNIFICANT CHANGE IN CONDITION. ALL NEEDS MET. WILL ENDORSE TO NEXT SHIFT FOR JEAN CARLOS.
[2017-06-09 20:00] VITALS: BP 109/44
--- NOTE | 2017-06-09 20:00 | NUR ---
RN NOTES RECEIVED PATIENT AWAKE IN BED. ALERT AND ORIENTED, MEXICAN SPEAKING. UNDERSTAND A LITTLE TAJIK. VERBAL. NO RESPIRATORY DISTRESS OR SHORTNESS OF BREATH. BREATHING EVEN AND UNLABORED. AMBULATORY WITH WALKER AND ASSIST. WILL CONTINUE TO MONITOR.
[2017-06-09] MEDS ORDERED: TRIAZOLAM 0.125 MG TABLET PO SCH (22:00)
[2017-06-09] MEDS: *INSULIN REGULAR(HUMULIN R)HUM 100 UNIT/ML VIAL SQ PRN (22:48)
[2017-06-10] VITALS: BP 127/47
[2017-06-10] MEDS ORDERED: ZOLPIDEM TARTRATE 5 MG TABLET PO PRN (01:00)
[2017-06-10 04:00] VITALS: BP 142/57
[2017-06-10] MEDS: NITROGLYCERIN PACKET 1 GM PACKET TOP SCH ×3 (05:57→21:26)
[2017-06-10] MEDS: BLOOD SUGAR DIAGNOSTIC 1 EACH STRIP VI SCH ×4 (05:58→21:26)
[2017-06-10] MEDS: *INSULIN REGULAR(HUMULIN R)HUM 100 UNIT/ML VIAL SQ PRN ×2 (05:59→21:34)
--- NOTE | 2017-06-10 06:23 | NUR ---
RN CLOSING NOTES IN BED, AWAKE WITH NO DISTRESS NOTED. NO COMPLAINT OF PAIN OR DISCOMFORT. BREATHING EVEN AND UNLABORED. VITAL SIGNS WNL. WILL ENDORSE TO AM SHIFT FOR CONTINUITY OF CARE
[2017-06-10] MEDS ORDERED: Medication Not On Formulary EA (Esomeprazole Mag Trihydrate (Nexium) 40 MG) PO SCH (07:30)
[2017-06-10 08:00] VITALS: BP 144/66
[2017-06-10 08:07] LABS: BASOPHILS % (AUTO) 0.3 % (0.0-2.0); EOSINOPHILS # (AUTO) 0.5 /CMM (0.0-0.7); EOSINOPHILS % (AUTO) 5.1 % (0.0-6.0); HEMATOCRIT 42 % (33-45); HEMOGLOBIN 13.6 g/dL (11.5-14.8); LYMPHOCYTES % (AUTO) 31.2 % (20.0-44.0); MEAN CORPUSCULAR HEMOGLOBIN 29 PG (26.0-33.0); MEAN CORPUSCULAR HGB CONC 32 g/dl (31.0-36.0); MEAN CORPUSCULAR VOLUME 89 fL (82-100); MONOCYTES % (AUTO) 10.1 % (2.0-12.0); NEUTROPHILS # (AUTO) 5.1 /CMM (1.8-8.9); NEUTROPHILS % (AUTO) 53.3 % (43.0-81.0); PLATELET COUNT (AUTO) 388 /CMM (150-450); RED BLOOD CELL COUNT(AUTO) 4.69 MIL/uL (4.0-5.2); WHITE BLOOD COUNT (AUTO) 9.6 K/uL (4.3-11.0)
[2017-06-10 08:34] LABS: CALCIUM, SERUM 9.4 mg/dL (8.5-10.1); CARBON DIOXIDE 34 mmol/L (21-32); CHLORIDE 100 mmol/L (98-107); CREATININE 1.1 mg/dL (0.6-1.3); GLUCOSE 129 mg/dL (74-106); MAGNESIUM 1.7 mg/dL (1.8-2.4); PHOSPHORUS 4.5 mg/dL (2.5-4.9); POTASSIUM 4.1 mmol/L (3.5-5.1); SODIUM SERUM 140 mmol/L (136-145); UREA NITROGEN, BLOOD 34 mg/dL (7-18)
[2017-06-10] MEDS ORDERED: MEMANTINE HCL PO SCH (09:00)
[2017-06-10] MEDS ORDERED: DONEPEZIL HCL PO SCH (09:00)
[2017-06-10] MEDS ORDERED: Icosapent Ethyl (Vascepa) 1 GM PO SCH ×2 (09:00)
[2017-06-10] MEDS ORDERED: DOCUSATE SODIUM 100 MG CAPSULE PO SCH (09:00)
[2017-06-10] MEDS: FLUTICASONE/VILANTEROL 1 EACH BLST.W.DEV IH SCH (09:13)
[2017-06-10] MEDS: methylPREDNISolone SOD SUCC 40 MG/ML VIAL IV SCH ×3 (09:13→16:52)
[2017-06-10] MEDS: COLCHICINE 0.6 MG TABLET PO SCH (09:14)
[2017-06-10] MEDS: PYRIDOXINE HCL 50 MG TABLET PO SCH (09:14)
[2017-06-10] MEDS: DOCUSATE SODIUM 100 MG CAPSULE PO SCH ×2 (09:14→16:52)
[2017-06-10] MEDS: DULOXETINE HCL 30 MG CAPSULE.DR PO SCH (09:14)
[2017-06-10] MEDS: MONTELUKAST SODIUM (10MG) 10 MG TABLET PO SCH (09:14)
[2017-06-10] MEDS: FOLIC ACID 1 MG TABLET PO SCH (09:14)
[2017-06-10] MEDS: ASPIRIN 81 MG TAB.CHEW PO SCH (09:14)
[2017-06-10] MEDS: DICYCLOMINE HCL 10 MG CAPSULE PO SCH ×2 (09:15→16:52)
[2017-06-10] MEDS: CYANOCOBALAMIN 500 MCG TABLET PO SCH (09:15)
[2017-06-10] MEDS: CHOLECALCIFEROL 1,000 UNIT TABLET (VIT D3) PO SCH (09:15)
[2017-06-10] MEDS: FUROSEMIDE 40 MG/4 ML VIAL IV SCH (09:15)
[2017-06-10] MEDS: AMLODIPINE BESYLATE 5 MG TABLET PO SCH (09:16)
[2017-06-10] MEDS: CARVEDILOL 12.5 MG TABLET PO SCH ×2 (09:16→16:53)
[2017-06-10] MEDS: LEVOTHYROXINE SODIUM 75 MCG TABLET PO SCH (09:19)
[2017-06-10] MEDS: MELOXICAM 7.5 MG TABLET PO SCH (09:19)
[2017-06-10] MEDS: PANTOPRAZOLE 40 MG TABLET.DR PO SCH (09:19)
[2017-06-10] MEDS: ENOXAPARIN SODIUM 30 MG/0.3 ML DISP.SYRIN SQ SCH (09:19)
[2017-06-10] MEDS ORDERED: LEVOTHYROXINE SODIUM 50 MCG TABLET PO SCH (10:00)
[2017-06-10] MEDS ORDERED: Magnesium 1GM/D5W 100ML PREMIX 100 ML IV SCH (10:30)
[2017-06-10] MEDS: Magnesium 1GM/D5W 100ML PREMIX 100 ML IV SCH ×2 (11:48→15:44)
[2017-06-10 12:00] VITALS: BP 118/55
[2017-06-10] MEDS: INSULIN REGULAR, HUMAN 100 UNIT/ML 3 ML VIAL SQ PRN ×2 (12:26→17:24)
[2017-06-10 16:00] VITALS: BP 120/52
--- NOTE | 2017-06-10 18:12 | NUR ---
RN NOTES PT RESTING IN BED, AWAKE ALERT, HONDURAN SPEAKING. APPEARS CALM AND RELAXED, NOT ON ANY DISTRESS. PT NON COMLIANT WITH O2, KEEPS REMOVING NASAL CANNULA. PATIENT EDUCATION PROVIDED. SR ON CARDIAC MMONITOR HR 70'S. DENIES ANY CHEST PAIN OR DISCOMFORT, THEODORE MIDLINE IV PATENT. KEPT COMFORTABLE, FALL PRECAUTIONS OBSERVED, BED ALARM ON. PT WITH ATTEMPTS OF GETTING OOB UNASSISTED. WALKER AT BEDSIDE. SAFETY MEASURES IN PLACE, CALL LIGHT WITHIN REACH, INSTRUCTED TO CALL FOR ASSIST.
--- NOTE | 2017-06-10 19:35 | NUR ---
DEMO COORDINATOR INITIAL NOTE RECEIVED SITTING UP IN BED. A/O X3 AND CHADIAN SPEAKING, BUT ABLE TO MAKE SOME NEEDS KNOWN. ON 2L OF O2 VIA NC AND SATURATING 91%. BREATHING REGULAR AND UNLABORED. IV RFA AND THEODORE MIDLINE CLEAN, INTACT AND FLUSHING WELL. BED ALARM ON. LOW BED AND LOCKED IN PLACE. CALL LIGHT WITHIN REACH. WILL CONTINUE TO MONITOR.
[2017-06-10 20:00] VITALS: BP 129/81
[2017-06-11] VITALS: BP 140/45
[2017-06-11 04:00] VITALS: BP 151/56
[2017-06-11] MEDS: NITROGLYCERIN PACKET 1 GM PACKET TOP SCH ×2 (04:28→12:42)
[2017-06-11 06:57] LABS: CALCIUM, SERUM 9.4 mg/dL (8.5-10.1); CARBON DIOXIDE 31 mmol/L (21-32); CHLORIDE 98 mmol/L (98-107); CREATININE 1.2 mg/dL (0.6-1.3); GLUCOSE 156 mg/dL (74-106); POTASSIUM 4.4 mmol/L (3.5-5.1); SODIUM SERUM 136 mmol/L (136-145); UREA NITROGEN, BLOOD 45 mg/dL (7-18)
[2017-06-11] MEDS: BLOOD SUGAR DIAGNOSTIC 1 EACH STRIP VI SCH ×2 (07:30→12:35)
--- NOTE | 2017-06-11 07:52 | NUR ---
LEVELER HELPER CLOSING NOTE REMAINED STABLE DURING SHIFT. NO ACUTE DISTRESS NOTED. ASSISTED NEEDED TO THE RESTROOM. ALL NEEDS ATTENDED TO PROMPTLY. CALL LIGHT WITHIN REACH. BED ALARM ON. WILL ENDORSE TO NEXT SHIFT FOR CONTINUITY OF CARE.
[2017-06-11 08:00] VITALS: BP 118/44
--- NOTE | 2017-06-11 08:00 | NUR ---
MS RN RECEIVED ON BED, AWAKE,ALERT,ORIENTED X3,NOT IN ANY FORM OF DISTRESS, PALESTINIAN SPEAKING LADY, NOT IN ANY FORM OF DISTRESS, RESPIRATIONS EVEN AND UNLABORED,NO SOB NOTED. DENIES PAIN AT THIS TIME, WILL MONITOR PATIENT..
--- NOTE | 2017-06-11 08:45 | NUR ---
MS DÍAZ BREAKFAST SERVED,DUE MEDS GIVEN,TOLERATED WELL.
[2017-06-11] MEDS: CARVEDILOL 12.5 MG TABLET PO SCH (09:00)
[2017-06-11] MEDS: AMLODIPINE BESYLATE 5 MG TABLET PO SCH (09:00)
[2017-06-11] MEDS ORDERED: LEVOTHYROXINE SODIUM 50 MCG TABLET PO SCH (09:00)
[2017-06-11] MEDS: PYRIDOXINE HCL 50 MG TABLET PO SCH (09:14)
[2017-06-11] MEDS: DULOXETINE HCL 30 MG CAPSULE.DR PO SCH (09:15)
[2017-06-11] MEDS: ASPIRIN 81 MG TAB.CHEW PO SCH (09:15)
[2017-06-11] MEDS: DOCUSATE SODIUM 100 MG CAPSULE PO SCH (09:15)
[2017-06-11] MEDS: DICYCLOMINE HCL 10 MG CAPSULE PO SCH (09:15)
[2017-06-11] MEDS: methylPREDNISolone SOD SUCC 40 MG/ML VIAL IV SCH ×2 (09:15→12:44)
[2017-06-11] MEDS: CYANOCOBALAMIN 500 MCG TABLET PO SCH (09:15)
[2017-06-11] MEDS: FOLIC ACID 1 MG TABLET PO SCH (09:15)
[2017-06-11] MEDS: MONTELUKAST SODIUM (10MG) 10 MG TABLET PO SCH (09:15)
[2017-06-11] MEDS: FUROSEMIDE 40 MG/4 ML VIAL IV SCH (09:16)
[2017-06-11] MEDS: ENOXAPARIN SODIUM 30 MG/0.3 ML DISP.SYRIN SQ SCH (09:16)
[2017-06-11] MEDS: CHOLECALCIFEROL 1,000 UNIT TABLET (VIT D3) PO SCH (09:16)
[2017-06-11] MEDS: COLCHICINE 0.6 MG TABLET PO SCH (09:29)
[2017-06-11] MEDS: PANTOPRAZOLE 40 MG TABLET.DR PO SCH (09:29)
[2017-06-11] MEDS: MELOXICAM 7.5 MG TABLET PO SCH (09:29)
[2017-06-11] MEDS: LEVOTHYROXINE SODIUM 75 MCG TABLET PO SCH (09:31)
[2017-06-11] MEDS: FLUTICASONE/VILANTEROL 1 EACH BLST.W.DEV IH SCH (09:32)
[2017-06-11] MEDS ORDERED: PRED20TA PO (10:40)
--- NOTE | 2017-06-11 11:00 | NUR ---
MS RN WAS SEEN BY DR. SORENSEN, WITH ORDER FOR HER TO GO HOME TODAY.
[2017-06-11 12:00] VITALS: BP 124/52
[2017-06-11 12:42] VITALS: BP 124/52
[2017-06-11] MEDS ORDERED: FUROSEMIDE 40 MG/4 ML VIAL IV SCH (13:00)
--- NOTE | 2017-06-11 15:00 | NUR ---
MS MANAGER CLINICAL CAME,OPTICAL LABORATORY MECHANIC PATIENT, DISCHARGE INSTRUCTIONS GIVEN AND UNDERSTOOD, WENT HOME W/ FAMILY, NO DISTRESS NOTED.
== END 2017-06-11 15:00 | disposition home or self-care (01) | DRG 189 ==
LOC: ER 10:30 → TELE1 11:54
PROVIDERS: ADMIT Internal Medicine; ATTEND Internal Medicine
PROC: 05H533Z Insertion of Infusion Device into Right Subclavian Vein, Percutaneous Approach (ICD-10-PCS; principal; 2017-06-10)
DX: J96.01 Acute respiratory failure with hypoxia (principal); E43 Unspecified severe protein-calorie malnutrition; G20 Parkinson's disease; E11.9 Type 2 diabetes mellitus without complications; I11.0 Hypertensive heart disease with heart failure; J45.901 Unspecified asthma with (acute) exacerbation; E66.01 Morbid (severe) obesity due to excess calories; I48.91 Unspecified atrial fibrillation; I50.32 Chronic diastolic (congestive) heart failure; G30.9 Alzheimer's disease, unspecified; F02.80 Dementia in other diseases classified elsewhere, unspecified severity, without behavioral disturbance, psychotic disturbance, mood disturbance, and anxiety; I25.10 Atherosclerotic heart disease of native coronary artery without angina pectoris; Z79.82 Long term (current) use of aspirin; Z79.899 Other long term (current) drug therapy; K80.20 Calculus of gallbladder without cholecystitis without obstruction; M19.90 Unspecified osteoarthritis, unspecified site; M10.9 Gout, unspecified; Z90.49 Acquired absence of other specified parts of digestive tract; Z68.38 Body mass index [BMI] 38.0-38.9, adult; Z79.84 Long term (current) use of oral hypoglycemic drugs
CPT/HCPCS: 36415; 71010-TC; 80048-TC; 80076-TC; 81000-TC; 82962-TC; 83605-TC; 83735-TC; 83880; 84100-TC; 84439-TC; 84443-TC; 84484-TC; 85025-TC; 85730-TC; 87040-TC; 87081-TC; 87086-TC; 93307-TC; A4606; J1650; J1815; J1940; J2920; J3475; Z7610

== ENCOUNTER 2017-06-22 14:23 | Outpatient (CLI) | payer MEDICARE, MEDICAID ==
[~2017-06-22 14:23] MED LIST changes: -ASPI-1152 PO; +ASPI-1169 PO; +CARV12.52 PO; -CARV6.252 PO; +CHOL100044 PO; +CLON0.1T PO; +COLC0.6T67 PO; +CYAN10009 PO; -Colchicine PO; +DICY10CA13 PO; +DULO60CA45 PO; -ENOX40DI SQ; +FLUT1DIS3 IH; +FOLI1TAB16 PO; +IBUP-1955 PO; +ICOS1CAP PO; -IPRA0.2S9 NEB; -LEVO125T PO; +LEVO150T8 PO; +LINA145C PO; +MECL-138 PO; +MELO-107 PO; +MEMA1CAP2 PO; -MUPI22OI7; +MYRBETRIQ PO; -NAPR375T5 PO; +PRED20TA PO; +PYRI50TA74 PO; -SULF1TAB48 PO; +TELM1TAB2 PO; +TRIA0.252 PO; +VORT10TA PO; -methylPREDNISolone SOD SUCC IV
[2017-06-22 14:36] VITALS: BP 120/78
== END 2017-06-22 23:59 | disposition home or self-care (01) ==
LOC: MSC 14:23
PROVIDERS: ATTEND Internal Medicine
DX: Z51.89 Encounter for other specified aftercare (principal); J45.909 Unspecified asthma, uncomplicated; E11.9 Type 2 diabetes mellitus without complications; M19.90 Unspecified osteoarthritis, unspecified site; E66.01 Morbid (severe) obesity due to excess calories; Z68.38 Body mass index [BMI] 38.0-38.9, adult; I10 Essential (primary) hypertension; G30.9 Alzheimer's disease, unspecified; F02.80 Dementia in other diseases classified elsewhere, unspecified severity, without behavioral disturbance, psychotic disturbance, mood disturbance, and anxiety; E43 Unspecified severe protein-calorie malnutrition; Z79.82 Long term (current) use of aspirin; M10.9 Gout, unspecified; Z79.51 Long term (current) use of inhaled steroids

== ENCOUNTER 2017-11-12 10:14 | Inpatient (IN) | payer MEDICARE, MEDICAID ==
[~2017-11-12] VITALS: Ht 157.5 cm; Wt 106.6 kg
[2017-11-12] VITALS (17 sets, daily range): BP systolic 113–166; BP diastolic 37–103
[~2017-11-12 10:14] MED LIST changes: -AMLO5TAB2 PO; +AMLO5TAB7 PO
--- NOTE | 2017-11-12 10:22 | NUR ---
TEODORO DT SOB X 2 DAYS. PATIENT IS AWAKE AND ALERT, NOT IN DISTRESS, RESPIRATION EVEN AND UNLABORED. SKIN IS WARM TO TOUCH AND NON DIAPHORETIC. AFEBRILE. DENIES NAUSEA AND VOMITTING. + WHEEZING UPON AUSCULTATION. VSS
--- NOTE | 2017-11-12 10:23 | NUR ---
MD BARNES AT
[2017-11-12] MEDS ORDERED: Magnesium 1GM/D5W 100ML PREMIX 200 ML IV ONE (10:25)
[2017-11-12] MEDS ORDERED: Magnesium 1GM/D5W 100ML PREMIX 100 ML IV ONE (10:28)
[2017-11-12] MEDS ORDERED: ALBUTEROL FS 2.5 MG/3 ML VIAL.NEB NEB ONE (10:30)
[2017-11-12] MEDS ORDERED: methylPREDNISolone SOD SUCC 125 MG/2ML VIAL IV ONE (10:30)
[2017-11-12] MEDS ORDERED: IPRATROPIUM NEB FS 0.5 MG/2.5 ML AMPUL.NEB NEB ONE (10:30)
[2017-11-12] MEDS ORDERED: ALBUTEROL FS 2.5 MG/3 ML VIAL.NEB ONE (10:31)
[2017-11-12] MEDS ORDERED: IPRATROPIUM NEB FS 0.5 MG/2.5 ML AMPUL.NEB ONE (10:31)
[2017-11-12] MEDS ORDERED: methylPREDNISolone SOD SUCC 125 MG/2ML VIAL ONE (10:32)
--- NOTE | 2017-11-12 10:34 | NUR ---
RT AT BS
[2017-11-12 10:39] LABS: BASOPHILS # (AUTO) 0.2 /CMM (0.0-0.2); BASOPHILS % (AUTO) 1.6 % (0.0-2.0); EOSINOPHILS % (AUTO) 3.7 % (0.0-6.0); HEMATOCRIT 41 % (33-45); HEMOGLOBIN 13.4 g/dL (11.5-14.8); LYMPHOCYTES # (AUTO) 2.2 /CMM (0.8-4.8); LYMPHOCYTES % (AUTO) 21.4 % (20.0-44.0); MEAN CORPUSCULAR HGB CONC 32 g/dl (31.0-36.0); MEAN CORPUSCULAR VOLUME 88 fL (82-100); MONOCYTES # (AUTO) 0.8 /CMM (0.1-1.30); MONOCYTES % (AUTO) 7.8 % (2.0-12.0); NEUTROPHILS # (AUTO) 6.7 /CMM (1.8-8.9); NEUTROPHILS % (AUTO) 65.5 % (43.0-81.0); PLATELET COUNT (AUTO) 449 /CMM (150-450); RDW COEFFICIENT OF VARIATION 14.7 (11.5-15.0); RED BLOOD CELL COUNT(AUTO) 4.73 MIL/uL (4.0-5.2); WHITE BLOOD COUNT (AUTO) 10.3 K/uL (4.3-11.0)
--- NOTE | 2017-11-12 10:40 | NUR ---
RT AT FOR BIPAP.
[2017-11-12] MEDS ORDERED: FUROSEMIDE 40 MG/4 ML VIAL ONE (10:45)
[2017-11-12] MEDS ORDERED: NITROGLYCERIN PACKET 1 GM PACKET ONE (10:46)
[2017-11-12 10:52] LABS: INR 1.11 (0.85-1.15)
--- NOTE | 2017-11-12 10:55 | NUR ---
PT NOTED CHERYL LOWEST AT 36. MD AWARE. PT PLACED ON PADS. FAMILY AT BS. WILL MONITOR.
[2017-11-12 10:59] LABS: TROPONIN I 0.031 ng/mL (0.00-0.056)
[2017-11-12] MEDS ORDERED: NITROGLYCERIN PACKET 1 GM PACKET TOP ONE (11:00)
[2017-11-12] MEDS ORDERED: NITROGLYCERIN 0.4 MG/TAB BOTTLE SL ONE (11:00)
[2017-11-12] MEDS ORDERED: FUROSEMIDE 40 MG/4 ML VIAL IV ONE (11:00)
[2017-11-12 11:03] LABS: ALANINE AMINOTRANSFERASE 20 U/L (12-78); ALBUMIN 3.5 g/dL (3.4-5.0); ALKALINE PHOSPHATASE 122 U/L (46-116); ASPARTATE AMINOTRANSFERASE 18 U/L (15-37); B-TYPE NATRIURETIC PEPTIDE 813 PG/ML (0-125); BILIRUBIN,DIRECT 0.2 mg/dL (0.0-0.2); BILIRUBIN,TOTAL 0.9 mg/dL (0.2-1.0); CARBON DIOXIDE 32 mmol/L (21-32); CHLORIDE 100 mmol/L (98-107); GLUCOSE 201 mg/dL (74-106); POTASSIUM 4.4 mmol/L (3.5-5.1); SODIUM SERUM 137 mmol/L (136-145); TOTAL PROTEIN, SERUM 7.3 g/dL (6.4-8.2); UREA NITROGEN, BLOOD 22 mg/dL (7-18)
[2017-11-12 11:12] LABS: MAGNESIUM 1.5 mg/dL (1.8-2.4)
[2017-11-12 12:09] LABS: THYROID STIMULATING HORMONE 16.263 uIU/mL (0.358-3.74)
--- NOTE | 2017-11-12 12:30 | NUR ---
REPORT GIVEN TO SARAH DÍAZ FOR ICU 256.
[2017-11-12] MEDS ORDERED: FUROSEMIDE 40 MG/4 ML VIAL IV SCH (13:00)
--- NOTE | 2017-11-12 13:03 | NUR ---
PATIENT TRANSPORTED TO ICU VIA ACLS PROTOCOL.
--- NOTE | 2017-11-12 13:10 | NUR ---
CANDLE MOLDER RECEIVED PATIENT FROM ER WITH ON GOING NON REBREATHER SATURATING 95% ALERT ORIENTED X 3, HUNGARIAN SPEAKING, SON IS AT BEDSIDE AFBERILE SINUS BRADYCARDIA, JUNCTIONAL SHOWN ON INVENTORY CLERK SBP AT 140'S OBESE ABLE TO TURN ON TECHNICAL PROJECT MANAGER SHOES AND SOCKS GIVEN TO HER SON
--- NOTE | 2017-11-12 13:15 | NUR ---
TITLE ASSISTANT PLACED ON BIPAP, ABG DONE BY RT CÁRDENAS CATHETER INSERTED AT BEDSIDE MONITORED CLOSELY
[2017-11-12] MEDS: IPRATROPIUM NEB FS 0.5 MG/2.5 ML AMPUL.NEB NEB SCH ×2 (13:21→19:42)
[2017-11-12] MEDS: ALBUTEROL HALF STRENGTH 1.25 MG/3 ML VIAL.NEB NEB SCH ×2 (13:21→19:42)
--- NOTE | 2017-11-12 15:14 | NUR ---
PRODUCTION LINE MECHANIC SEEN AND EXAMINED BY DARRYL DNP NO ORDERED GIVEN
[2017-11-12] MEDS ORDERED: ACETAMINOPHEN 325 MG TABLET PO PRN (15:30)
[2017-11-12] MEDS ORDERED: Z GUARD REMEDY 2 OZ OINT TP PRN (15:30)
[2017-11-12] MEDS ORDERED: MAGNESIUM HYDROXIDE 30 ML UDC PO PRN (15:30)
[2017-11-12] MEDS ORDERED: MAG HYDROX/AL HYDROX/SIMETH 30 ML UDC PO PRN (15:30)
[2017-11-12] MEDS ORDERED: HYDROCODONE/APAP 5/325MG 1 EACH TABLET PO PRN (15:30)
[2017-11-12] MEDS ORDERED: ONDANSETRON HCL/PF 4 MG/2 ML VIAL IVP PRN (15:30)
[2017-11-12] MEDS ORDERED: ZOLPIDEM TARTRATE 5 MG TABLET PO PRN (15:30)
[2017-11-12] MEDS ORDERED: ENOXAPARIN SODIUM 40 MG/0.4 ML DISP.SYRIN SQ SCH (16:00)
[2017-11-12] MEDS ORDERED: DEXTROSE 50%-WATER 50 ML DISP.SYRIN IV PRN (16:00)
[2017-11-12] MEDS: PANTOPRAZOLE 40 MG VIAL IV SCH (16:05)
[2017-11-12] MEDS: FUROSEMIDE 40 MG/4 ML VIAL IV SCH ×2 (16:05→22:03)
[2017-11-12] MEDS: BLOOD SUGAR DIAGNOSTIC 1 EACH STRIP VI SCH ×2 (17:17→22:02)
[2017-11-12 17:27] LABS: ABG BASE EXCESS 2.6 mmol/L; ABG OXYGEN SATURATION 95.2 % (92.0-98.5); ABG PCO2 50.9 mmHg (35.0-45.0); ABG PO2 84.3 mmHg (75.0-100.0); AaDO2 106.1 mmHg; COHb 0.3 % (0.5-1.5); MetHb 0.5 % (0.0-1.5); O2Hb 94.4 % (94.0-97.0); PEEP,BG 5 cm H2O; SITE, ABG Right Radial
[2017-11-12] MEDS: INSULIN REGULAR, HUMAN 100 UNIT/ML 3 ML VIAL SQ PRN (17:27)
--- NOTE | 2017-11-12 19:35 | NUR ---
RN NOTES RECEIVED PT EATING ON BED AOX2-3 BOTSWANAN SPEAKING WITH O2 VIA NC TOLERATED WELL SATURATING 97% NO ACUTE RESP DISTRESS. SB 36 PER PREVIOUS NURSE. PT IS IN AND OUT SB AND JUNCTIONAL RHYTHM BETWEEN 30'S-50'S IN TELE MONITOR. IV SITE ON RAC G 20 AND LAC G 20 INTACT AND PATENT FLUSHED WELL. DENIES PAIN AT THIS TIME. AFEBRILE. VS STABLE SBP 140'S. KEPT PT CLEAN AND DRY AND COMFORTABLE IN BED. WILL MONITOR CLOSELY.
--- NOTE | 2017-11-12 20:30 | NUR ---
RN NOTES PLACED BACK TO BIPAP BY RT
[2017-11-12] MEDS: *INSULIN REGULAR(HUMULIN R)HUM 100 UNIT/ML VIAL SQ PRN (22:09)
[2017-11-13] VITALS (26 sets, daily range): BP systolic 97–160; BP diastolic 44–76
[2017-11-13] MEDS: ALBUTEROL HALF STRENGTH 1.25 MG/3 ML VIAL.NEB NEB SCH ×4 (01:39→20:23)
[2017-11-13] MEDS: IPRATROPIUM NEB FS 0.5 MG/2.5 ML AMPUL.NEB NEB SCH ×4 (01:39→20:23)
[2017-11-13 04:52] LABS: BASOPHILS % (AUTO) 0.1 % (0.0-2.0); EOSINOPHILS % (AUTO) 0.1 % (0.0-6.0); HEMATOCRIT 36 % (33-45); LYMPHOCYTES # (AUTO) 1.5 /CMM (0.8-4.8); LYMPHOCYTES % (AUTO) 19.2 % (20.0-44.0); MEAN CORPUSCULAR HGB CONC 34 g/dl (31.0-36.0); MEAN CORPUSCULAR VOLUME 88 fL (82-100); MONOCYTES # (AUTO) 0.9 /CMM (0.1-1.30); MONOCYTES % (AUTO) 11.1 % (2.0-12.0); NEUTROPHILS # (AUTO) 5.6 /CMM (1.8-8.9); NEUTROPHILS % (AUTO) 69.5 % (43.0-81.0); PLATELET COUNT (AUTO) 358 /CMM (150-450); RDW COEFFICIENT OF VARIATION 15.3 (11.5-15.0); RED BLOOD CELL COUNT(AUTO) 4.06 MIL/uL (4.0-5.2); WHITE BLOOD COUNT (AUTO) 8.1 K/uL (4.3-11.0)
--- NOTE | 2017-11-13 05:00 | NUR ---
RN NOTES REMOVED BIPAP PER PT REQUEST. PLACED PT TO O2 2LPM VIA NC TOLERATED WELL SATURATING 97%. PT REMAINED INS TABLE CONDITION. NO CHANGE OF MENTAL STATUS. AFEBRILE. SINUS CHERYL LOWEST HR 33 IN THIS SHIFT. BED BATH DONE, PT WITH GOOD URINE OUTPUT 3RD DOSE OF LASIX DONE. KEPT CLEANED AND DRY. WILL ENDORSED CONTINUITY OF CARE TO AM NURSE.
[2017-11-13 05:10] LABS: CALCIUM, SERUM 8.8 mg/dL (8.5-10.1); CARBON DIOXIDE 34 mmol/L (21-32); CHLORIDE 100 mmol/L (98-107); CREATININE 1.2 mg/dL (0.6-1.3); GLUCOSE 129 mg/dL (74-106); MAGNESIUM 1.5 mg/dL (1.8-2.4); PHOSPHORUS 5.2 mg/dL (2.5-4.9); POTASSIUM 4.3 mmol/L (3.5-5.1); SODIUM SERUM 139 mmol/L (136-145); UREA NITROGEN, BLOOD 28 mg/dL (7-18)
[2017-11-13 05:12] LABS: CHOLESTEROL 142 mg/dL (<200); HDL CHOLESTEROL 54 mg/dL (40-60); LDL 72 mg/dL (0-99); TRIGLYCERIDES 119 mg/dL (30-150)
[2017-11-13] MEDS: FUROSEMIDE 40 MG/4 ML VIAL IV SCH (05:47)
--- NOTE | 2017-11-13 07:10 | NUR ---
RN INITIAL NOTES RECEIVED PT AWAKE, A/OX3-4, MALAGASY SPEAKING. ON 02 AT 2LPM VIA NC. NO RESPIRATORY DISTRESS NOTED. NO SOB NOTED. NO SIGNS OF PAIN NOTED. IV LINES IN PLACE. BLE ELEVATED. PT REPOSITIONED. COMFORTABLE. WILL CONTINUE TO MONITOR.
[2017-11-13] MEDS ORDERED: Medication Not On Formulary EA (Esomeprazole Mag Trihydrate (Nexium) 40 MG) PO SCH (08:00)
[2017-11-13] MEDS ORDERED: LEVOTHYROXINE SODIUM 150 MCG TABLET PO SCH (08:00)
--- NOTE | 2017-11-13 08:00 | NUR ---
RN NOTES SEEN AND EXAMINED BY DR. OWUSU. AWARE OF PT'S HR 50S, SBP 130S. MD AWARE OF LAB VALUES AND CXR RESULT. MD REVIEWED CURRENT MEDS, WITH ORDERS MADE. WILL CONTINUE TO MONITOR.
[2017-11-13] MEDS: PYRIDOXINE HCL 50 MG TABLET PO SCH (08:26)
[2017-11-13] MEDS: FUROSEMIDE 40 MG TABLET PO SCH (08:27)
[2017-11-13] MEDS: Magnesium 1GM/D5W 100ML PREMIX 100 ML IV SCH ×2 (08:27→09:33)
[2017-11-13] MEDS: DULOXETINE HCL 30 MG CAPSULE.DR PO SCH (08:27)
[2017-11-13] MEDS: MONTELUKAST SODIUM (10MG) 10 MG TABLET PO SCH (08:27)
[2017-11-13] MEDS: PANTOPRAZOLE 40 MG VIAL IV SCH (08:27)
[2017-11-13] MEDS: BLOOD SUGAR DIAGNOSTIC 1 EACH STRIP VI SCH ×4 (08:28→21:38)
[2017-11-13] MEDS: INSULIN REGULAR, HUMAN 100 UNIT/ML 3 ML VIAL SQ PRN ×2 (08:37→17:15)
[2017-11-13] MEDS: LEVOTHYROXINE SODIUM 75 MCG TABLET PO SCH (08:46)
[2017-11-13] MEDS ORDERED: [UNRECOGNIZED DRUG - OTHER] PO SCH (09:00)
[2017-11-13] MEDS: AMLODIPINE BESYLATE 5 MG TABLET PO SCH (09:00)
[2017-11-13] MEDS ORDERED: Medication Not On Formulary EA (Icosapent Ethyl (Vascepa) 1 GM) PO SCH (09:00)
--- NOTE | 2017-11-13 10:00 | NUR ---
RN NOTES SEEN AND EXAMINED BY DR. ALCALA. PT ON 02 AT 2LPM VIA NC. HOB ELEVATED. NO SOB NOTED. MD AWARE OF LAB VALUES AND CXR RESULT. WILL MONITOR.
--- NOTE | 2017-11-13 12:00 | NUR ---
RN NOTES SEEN AND EXAMINED BY TIMOTHY ANDREWS NP. PT AWAKE, A/OX4. ON 02 AT 2LPM VIA NC. NO SOB NOTED. HOB ELEVATED. AWARE OF LAB VALUES AND CXR RESULT. MAGNESIUM REPLACED. RASTA'S (GRAND DAUGHTER) # GIVEN TO DEPUTY DIRECTOR OF NURSING PER REQUEST FOR UPDATE. WILL MONITOR.
[2017-11-13 12:32] LABS: ABG BASE EXCESS 7.6 mmol/L; ABG OXYGEN SATURATION 96.5 % (92.0-98.5); ABG PCO2 50.2 mmHg (35.0-45.0); ABG PH 7.437 (7.350-7.450); ABG PO2 94.5 mmHg (75.0-100.0); AaDO2 60.4 mmHg; MetHb 0.4 % (0.0-1.5); O2Hb 96.1 % (94.0-97.0); SITE, ABG Left Brachial; VENT MODE, BG nasal cannula
--- NOTE | 2017-11-13 18:45 | NUR ---
RN NOTES PT TRANSFERRED TO 113-1. PT A/O X 2-3. NO SOB NOTED. NO RESPIRATORY DISTRESS NOTED. DENIES ANY PAIN. BEDSIDE REPROT GIVEN TO VIRGEN DÍAZ. TOOK OVER PT'S CARE.
--- NOTE | 2017-11-13 18:46 | NUR ---
CREW DIRECTOR NOTE: RECEIVED PATIENT TO ROOM 113-1 AND REPORT WAS GIVEN BY ALIYAH HEAD BUCKER. PATIENT AWAKE, ALERT AND VERBALLY RESPONSIVE PALESTINIAN SPEAKING MOSTLY. DENIED ANY PAIN. PER NURSE REPORT, PATIENT ATE 100% FOR HER DINNER. HOB ELEVATED. BED IN LOWEST POSITION. BED ALARMED AND LOCKED AT ALL TIMES. CALL LIGHT WITHIN REACH. ON SPACE SYSTEMS OPERATIONS SUPERINTENDENT, SINUS BRADYCARDIA HR =56. ON O2 2L/MIN VIA NC AND SATURATING 96%.
--- NOTE | 2017-11-13 18:51 | NUR ---
ORACLE BPM DEVELOPER NOTE: REPORT WILL BE GIVEN TO THE PM SHIFT NURSE FOR CONTINUITY OF CARE.
--- NOTE | 2017-11-13 19:10 | NUR ---
TORPEDO WORKER NOTE: CALLED AND SPOKE WITH JAVID GARCIA, SON (TEL #: [phone]) AND HE WAS GIVEN A COURTESY CALL REGARDING HIS MOTHER BEING TRANSFERRED TO ROOM 113-1.
--- NOTE | 2017-11-13 19:35 | NUR ---
SIMPLEX PRINTER INSTALLER NOTES, RECEIVED PATIENT IN BED, AWAKE ALERT AND ORIENTED, VERBALLY RESPONSIVE PALESTINIAN SPEAKING NO S/S OF SOB/ACUTE DISTRESS NOTED AT THIS TIME, SINUS CHERYL IN CHICKEN AND FISH BUTCHER IN HIGHS 50'S, ON 2LPM ANC, SATURATION LEVEL >96%, BED IN LOWEST POSITION, BED ALARMED AND LOCKED AT ALL TIMES. CALL LIGHT WITHIN REACH. WILL CONTINUE TO MONITOR CLOSELY.
[2017-11-13] MEDS: ENOXAPARIN SODIUM 40 MG/0.4 ML DISP.SYRIN SQ SCH (21:16)
[2017-11-13] MEDS: *INSULIN REGULAR(HUMULIN R)HUM 100 UNIT/ML VIAL SQ PRN (21:25)
[2017-11-14] VITALS: BP 125/59
[2017-11-14] MEDS: ALBUTEROL HALF STRENGTH 1.25 MG/3 ML VIAL.NEB NEB SCH ×3 (01:22→12:56)
[2017-11-14] MEDS: IPRATROPIUM NEB FS 0.5 MG/2.5 ML AMPUL.NEB NEB SCH ×6 (01:22→23:43)
[2017-11-14 04:00] VITALS: BP_SYST 150; BP_DIAS 67; BP_DIAS 90
[2017-11-14 06:15] LABS: BASOPHILS % (AUTO) 0.2 % (0.0-2.0); EOSINOPHILS % (AUTO) 2.9 % (0.0-6.0); HEMATOCRIT 39 % (33-45); HEMOGLOBIN 13.2 g/dL (11.5-14.8); LYMPHOCYTES # (AUTO) 3.3 /CMM (0.8-4.8); LYMPHOCYTES % (AUTO) 29.5 % (20.0-44.0); MEAN CORPUSCULAR HGB CONC 34 g/dl (31.0-36.0); MEAN CORPUSCULAR VOLUME 89 fL (82-100); MONOCYTES # (AUTO) 1.1 /CMM (0.1-1.30); MONOCYTES % (AUTO) 9.9 % (2.0-12.0); NEUTROPHILS # (AUTO) 6.4 /CMM (1.8-8.9); NEUTROPHILS % (AUTO) 57.5 % (43.0-81.0); PLATELET COUNT (AUTO) 414 /CMM (150-450); RDW COEFFICIENT OF VARIATION 15.7 (11.5-15.0); RED BLOOD CELL COUNT(AUTO) 4.44 MIL/uL (4.0-5.2); WHITE BLOOD COUNT (AUTO) 11.1 K/uL (4.3-11.0)
[2017-11-14 06:41] LABS: ALANINE AMINOTRANSFERASE 21 U/L (12-78); ALBUMIN 3.1 g/dL (3.4-5.0); ALKALINE PHOSPHATASE 115 U/L (46-116); ASPARTATE AMINOTRANSFERASE 31 U/L (15-37); BILIRUBIN,TOTAL 0.5 mg/dL (0.2-1.0); CARBON DIOXIDE 36 mmol/L (21-32); CHLORIDE 97 mmol/L (98-107); CREATININE 1.1 mg/dL (0.6-1.3); GLUCOSE 117 mg/dL (74-106); MAGNESIUM 1.8 mg/dL (1.8-2.4); POTASSIUM 3.9 mmol/L (3.5-5.1); SODIUM SERUM 139 mmol/L (136-145); TOTAL PROTEIN, SERUM 6.7 g/dL (6.4-8.2); UREA NITROGEN, BLOOD 37 mg/dL (7-18)
--- NOTE | 2017-11-14 06:52 | NUR ---
GARMENT PARTS CUTTER HAND CLOSING NOTES, PATIENT IN BED, AWAKE ALERT AND ORIENTED, VERBALLY RESPONSIVE MALAGASY SPEAKING NO S/S OF SOB/ACUTE DISTRESS NOTED AT THIS TIME, SR IN HOT TAMALE WORKER LOW 60S AT THIS TIME, ON 2LPM ANC, SATURATION LEVEL >96%, BED IN LOWEST POSITION, DRY AND CLEAN, OFFLOAD EXTREMITIES, NO SIGNIFICANT CHANGE OF CONDITION THROUGHOUT THE SHIFT, BED LOCKED AND IN PROPER POSITION, CALL LIGHT WITHIN REACH. WILL ENDORSE TO ONCOMING NURSE FOR CONTINUITY OF CARE.
[2017-11-14] MEDS: BLOOD SUGAR DIAGNOSTIC 1 EACH STRIP VI SCH ×4 (07:52→21:13)
[2017-11-14 08:00] VITALS: BP 166/67
[2017-11-14] MEDS: PANTOPRAZOLE 40 MG VIAL IV SCH (08:46)
[2017-11-14] MEDS: PYRIDOXINE HCL 50 MG TABLET PO SCH (08:47)
[2017-11-14] MEDS: HYDROCHLOROTHIAZIDE 25 MG TABLET PO SCH (08:47)
[2017-11-14] MEDS: MONTELUKAST SODIUM (10MG) 10 MG TABLET PO SCH (08:47)
[2017-11-14] MEDS: DULOXETINE HCL 30 MG CAPSULE.DR PO SCH (08:47)
[2017-11-14] MEDS: FUROSEMIDE 40 MG TABLET PO SCH (08:47)
[2017-11-14] MEDS: AMLODIPINE BESYLATE 5 MG TABLET PO SCH (08:48)
[2017-11-14] MEDS: LOSARTAN POTASSIUM 50 MG TABLET PO SCH (08:49)
[2017-11-14] MEDS: VALSARTAN 80 MG TABLET PO SCH (12:01)
[2017-11-14] MEDS: INSULIN REGULAR, HUMAN 100 UNIT/ML 3 ML VIAL SQ PRN ×2 (12:09→18:17)
[2017-11-14] MEDS: methylPREDNISolone SOD SUCC 125 MG/2ML VIAL IV SCH ×2 (14:53→18:06)
[2017-11-14] MEDS: ALBUTEROL FS 2.5 MG/0.5 ML VIAL.NEB NEB SCH ×3 (15:17→23:43)
[2017-11-14] MEDS: ACETYLCYSTEINE 20% SOLN 800 MG/4 ML VIAL NEB SCH ×2 (15:17→23:43)
[2017-11-14 16:00] VITALS: BP 158/78
--- NOTE | 2017-11-14 19:30 | NUR ---
MS SEXTON RN NOTES, RECEIVED PATIENT IN BED, SLEEPING AT THIS TIME, BREATHING EVEN AND UNLABORED, NO SOB/ACUTE DISTRESS NOTED AT THIS TIME, ON 2LPM ANC, SATURATION LEVEL >96%, BED IN LOWEST POSITION, IV ACCES INN LEFT FA INTACT AND PATENT, F/C IN PLACE DRAINING YELLOW URINE BY GRAVITY, PATENCY INTACT, BED ALARMED AND LOCKED AT ALL TIMES. CALL LIGHT WITHIN REACH. WILL CONTINUE TO MONITOR CLOSELY.
[2017-11-14 20:00] VITALS: BP 138/73
[2017-11-14] MEDS: *INSULIN REGULAR(HUMULIN R)HUM 100 UNIT/ML VIAL SQ PRN (21:15)
[2017-11-14] MEDS: ENOXAPARIN SODIUM 40 MG/0.4 ML DISP.SYRIN SQ SCH (21:16)
[2017-11-15] MEDS: ALBUTEROL FS 2.5 MG/0.5 ML VIAL.NEB NEB SCH ×6 (03:20→23:26)
[2017-11-15] MEDS: IPRATROPIUM NEB FS 0.5 MG/2.5 ML AMPUL.NEB NEB SCH ×6 (03:20→23:25)
[2017-11-15 04:00] VITALS: BP 151/67
[2017-11-15 06:40] LABS: BASOPHILS % (AUTO) 0.3 % (0.0-2.0); HEMATOCRIT 43 % (33-45); HEMOGLOBIN 14.4 g/dL (11.5-14.8); LYMPHOCYTES # (AUTO) 1.6 /CMM (0.8-4.8); LYMPHOCYTES % (AUTO) 17.2 % (20.0-44.0); MEAN CORPUSCULAR HGB CONC 34 g/dl (31.0-36.0); MEAN CORPUSCULAR VOLUME 87 fL (82-100); MONOCYTES # (AUTO) 0.4 /CMM (0.1-1.30); MONOCYTES % (AUTO) 3.9 % (2.0-12.0); NEUTROPHILS # (AUTO) 7.1 /CMM (1.8-8.9); NEUTROPHILS % (AUTO) 78.6 % (43.0-81.0); PLATELET COUNT (AUTO) 450 /CMM (150-450); RDW COEFFICIENT OF VARIATION 14.1 (11.5-15.0); RED BLOOD CELL COUNT(AUTO) 4.88 MIL/uL (4.0-5.2); WHITE BLOOD COUNT (AUTO) 9.1 K/uL (4.3-11.0)
--- NOTE | 2017-11-15 06:41 | NUR ---
[employer] CLOSING NOTES, PATIENT IN BED, AWAKE ALERT AND ORIENTED, VERBALLY RESPONSIVE POLISH SPEAKING NO S/S OF SOB/ACUTE DISTRESS NOTED AT THIS TIME, ON 2LPM ANC, SATURATION LEVEL >96%, BED IN LOWEST POSITION, IV ACCESS IN RIGHT HAND PATENT AND INTACT, OFFLOAD EXTREMITIES, NO SIGNIFICANT CHANGE OF CONDITION THROUGHOUT THE SHIFT, BED LOCKED AND IN PROPER POSITION, DRY AND CLEAN, CALL LIGHT WITHIN REACH. WILL ENDORSE TO ONCOMING NURSE FOR CONTINUITY OF CARE. Addendum: 11/15/17 at 0644 by JASON MAC RN RN CLOSING NOTES,
[2017-11-15 06:58] LABS: CALCIUM, SERUM 9.6 mg/dL (8.5-10.1); CARBON DIOXIDE 35 mmol/L (21-32); CHLORIDE 92 mmol/L (98-107); CREATININE 1.2 mg/dL (0.6-1.3); GLUCOSE 179 mg/dL (74-106); MAGNESIUM 1.7 mg/dL (1.8-2.4); PHOSPHORUS 3.8 mg/dL (2.5-4.9); POTASSIUM 3.8 mmol/L (3.5-5.1); SODIUM SERUM 138 mmol/L (136-145); UREA NITROGEN, BLOOD 45 mg/dL (7-18)
[2017-11-15] MEDS: BLOOD SUGAR DIAGNOSTIC 1 EACH STRIP VI SCH ×4 (07:49→21:25)
[2017-11-15 08:00] VITALS: BP 141/63
[2017-11-15] MEDS: LEVOTHYROXINE SODIUM 75 MCG TABLET PO SCH (08:02)
[2017-11-15] MEDS: DULOXETINE HCL 30 MG CAPSULE.DR PO SCH (08:03)
[2017-11-15] MEDS: VALSARTAN 80 MG TABLET PO SCH (08:04)
[2017-11-15] MEDS: methylPREDNISolone SOD SUCC 125 MG/2ML VIAL IV SCH ×3 (08:05→17:23)
[2017-11-15] MEDS: AMLODIPINE BESYLATE 5 MG TABLET PO SCH (08:05)
[2017-11-15] MEDS: MONTELUKAST SODIUM (10MG) 10 MG TABLET PO SCH (08:06)
[2017-11-15] MEDS: FUROSEMIDE 40 MG TABLET PO SCH (08:06)
[2017-11-15] MEDS: PYRIDOXINE HCL 50 MG TABLET PO SCH (08:06)
[2017-11-15] MEDS: HYDROCHLOROTHIAZIDE 25 MG TABLET PO SCH (08:07)
[2017-11-15] MEDS: LOSARTAN POTASSIUM 50 MG TABLET PO SCH (08:14)
[2017-11-15] MEDS: INSULIN REGULAR, HUMAN 100 UNIT/ML 3 ML VIAL SQ PRN ×3 (08:22→17:26)
[2017-11-15] MEDS: ACETYLCYSTEINE 20% SOLN 800 MG/4 ML VIAL NEB SCH ×3 (08:29→23:25)
[2017-11-15] MEDS: Magnesium 1GM/D5W 100ML PREMIX 100 ML IV SCH ×2 (11:20→12:30)
[2017-11-15 16:00] VITALS: BP 153/65
--- NOTE | 2017-11-15 19:30 | NUR ---
MS RN NOTES RECEIVED ON BED HAVING BREATHING TREATMENT SCHEDULED,RT AT BEDSIDE.A/O X2,TAIWANESE SPEAKING,FORGETFUL AY TIMES,ABLE TO AMBULATE WITH WALKER WITH ASSIST,FALL RISK,OBESE.SALINE LOCK RIGHT HAND INTACT AND PATENT,WRAPPED WITH KERLIX.BED ON LOW POSITION AND LOCKED.CALL LIGHT IN REACH,NEEDS ANTICIPATED.
[2017-11-15 20:00] VITALS: BP 122/42
[2017-11-15] MEDS: ENOXAPARIN SODIUM 40 MG/0.4 ML DISP.SYRIN SQ SCH (20:47)
--- NOTE | 2017-11-15 21:30 | NUR ---
MS RN NOTES ACCUCHECK BLOOD SUGAR CHECK 260,COVERED WITH HUMULIN R 6 UNITS PER SLIDING SCALE.
[2017-11-15] MEDS: *INSULIN REGULAR(HUMULIN R)HUM 100 UNIT/ML VIAL SQ PRN (21:33)
--- NOTE | 2017-11-16 00:30 | NUR ---
MS RN NOTES AWAKE,CONFUSED,PULLED OUT HER SALINE LOCK RIGHT HAND.NEW SALINE LOCK PLACE ON LEFT HAND #24,SECURED WITH KERLIX.
[2017-11-16 04:00] VITALS: BP 130/37
--- NOTE | 2017-11-16 06:25 | NUR ---
MS RN NOTES CALM AND QUIET THIS TIME.BREATHING TREATMENT TOLERATED WELL.NO EPISODE OF SOB NOTED.O2 IN USED TO KEEP O2 SAT ABOVE 90%.PLAN D/C TO ACUTE REHAB PER PT.IN NO ACUTE DISTRESS.CALL LIGHT IN REACH,NEEDS ATTENDED.WILL ENDORSE TO DAY NURSE FOR JEAN CARLOS.
[2017-11-16 06:47] LABS: BASOPHILS % (AUTO) 0.1 % (0.0-2.0); EOSINOPHILS % (AUTO) 0.4 % (0.0-6.0); HEMATOCRIT 40 % (33-45); HEMOGLOBIN 13.3 g/dL (11.5-14.8); LYMPHOCYTES # (AUTO) 1.9 /CMM (0.8-4.8); LYMPHOCYTES % (AUTO) 15.1 % (20.0-44.0); MEAN CORPUSCULAR HGB CONC 34 g/dl (31.0-36.0); MEAN CORPUSCULAR VOLUME 88 fL (82-100); MONOCYTES # (AUTO) 1.3 /CMM (0.1-1.30); MONOCYTES % (AUTO) 10.1 % (2.0-12.0); NEUTROPHILS # (AUTO) 9.5 /CMM (1.8-8.9); NEUTROPHILS % (AUTO) 74.3 % (43.0-81.0); PLATELET COUNT (AUTO) 443 /CMM (150-450); RDW COEFFICIENT OF VARIATION 15.1 (11.5-15.0); RED BLOOD CELL COUNT(AUTO) 4.51 MIL/uL (4.0-5.2); WHITE BLOOD COUNT (AUTO) 12.8 K/uL (4.3-11.0)
[2017-11-16 07:04] LABS: CALCIUM, SERUM 9.5 mg/dL (8.5-10.1); CARBON DIOXIDE 39 mmol/L (21-32); CHLORIDE 94 mmol/L (98-107); CREATININE 1.1 mg/dL (0.6-1.3); GLUCOSE 150 mg/dL (74-106); MAGNESIUM 2.2 mg/dL (1.8-2.4); PHOSPHORUS 3.8 mg/dL (2.5-4.9); POTASSIUM 3.4 mmol/L (3.5-5.1); SODIUM SERUM 140 mmol/L (136-145); UREA NITROGEN, BLOOD 55 mg/dL (7-18)
--- NOTE | 2017-11-16 07:30 | NUR ---
MS RN AM NOTES RECEIVED PT IN BED, ASLEEP AROUSES TO NAME AND TOUCH, AO X 2, MAURITANIAN SPEAKING, ON 2L O2 NC, NO DISTRESS, RESPIRATION UNLABORED. EPISODES OF CONFUSION, LEFT HAND G 24, FLUSHES WELL SITE CLEAR, SKIN INTACT, ON CCHO DIET. CÁRDENAS CATH IN PLACE, DRAINING TO GRAVITY, ADEQUATE AMOUNT URINE. ABLE TO AMBULATE WITH WALKER WITH ASSIST,FALL RISK,OBESE.SBED ON LOW POSITION AND LOCKED.CALL LIGHT IN REACH,NEEDS ANTICIPATED.WILL CONTINUE TO MONITOR.
[2017-11-16] MEDS: LEVOTHYROXINE SODIUM 75 MCG TABLET PO SCH (07:51)
[2017-11-16] MEDS: BLOOD SUGAR DIAGNOSTIC 1 EACH STRIP VI SCH ×4 (07:51→21:34)
--- NOTE | 2017-11-16 07:51 | NUR ---
MS RN NOTES ACCUCHECK. BS 140 MG/DL. 2 UNITS HUM R PER SS GIVEN.
[2017-11-16 08:00] VITALS: BP 158/55
[2017-11-16] MEDS: ACETYLCYSTEINE 20% SOLN 800 MG/4 ML VIAL NEB SCH ×3 (08:00→23:19)
[2017-11-16] MEDS: ALBUTEROL FS 2.5 MG/0.5 ML VIAL.NEB NEB SCH ×5 (08:00→23:19)
[2017-11-16] MEDS: IPRATROPIUM NEB FS 0.5 MG/2.5 ML AMPUL.NEB NEB SCH ×5 (08:00→23:19)
[2017-11-16] MEDS: DULOXETINE HCL 30 MG CAPSULE.DR PO SCH (08:02)
[2017-11-16] MEDS: PYRIDOXINE HCL 50 MG TABLET PO SCH (08:02)
[2017-11-16] MEDS: methylPREDNISolone SOD SUCC 125 MG/2ML VIAL IV SCH (08:06)
[2017-11-16] MEDS: MONTELUKAST SODIUM (10MG) 10 MG TABLET PO SCH (08:07)
[2017-11-16] MEDS: FUROSEMIDE 40 MG TABLET PO SCH (08:07)
[2017-11-16] MEDS: VALSARTAN 80 MG TABLET PO SCH (08:18)
[2017-11-16] MEDS: AMLODIPINE BESYLATE 5 MG TABLET PO SCH (08:18)
[2017-11-16] MEDS: HYDROCHLOROTHIAZIDE 25 MG TABLET PO SCH (08:19)
[2017-11-16] MEDS: LOSARTAN POTASSIUM 50 MG TABLET PO SCH (08:19)
[2017-11-16] MEDS: INSULIN REGULAR, HUMAN 100 UNIT/ML 3 ML VIAL SQ PRN ×3 (08:34→16:53)
--- NOTE | 2017-11-16 09:30 | NUR ---
MS RN NOTES DUE MEDS GIVEN
[2017-11-16] MEDS ORDERED: POTASSIUM CHLORIDE 20 MEQ TAB.PRT.SR PO SCH (10:30)
--- NOTE | 2017-11-16 12:05 | NUR ---
MS RN NOTES ACCUCHECK. BS 209 MG/DL. 6 UNITS HUM R PER SS GIVEN.
[2017-11-16 16:00] VITALS: BP 129/63
--- NOTE | 2017-11-16 16:50 | NUR ---
MS RN NOTES ACCUCHECK. BS 226 MG/DL. 6 UNITS HUM R PER SS GIVEN.
--- NOTE | 2017-11-16 19:12 | NUR ---
MS RN CLOSING NOTES PT IN BED, RESTING COMFORTABLY, AO X 2, MALDIVIAN SPEAKING, ON 2L O2 NC, NO DISTRESS, RESPIRATION UNLABORED. EPISODES OF CONFUSION, LEFT HAND G 24, FLUSHES WELL SITE CLEAR, SKIN INTACT, ON CCHO DIET. PATIENT PULLED OUT CÁRDENAS CATH, REFUSED TO HAVE IT REINSERTED. 600 ML OUTPUT. ABLE TO AMBULATE WITH WALKER WITH ASSIST,FALL RISK,OBESE.BED ON LOW POSITION AND LOCKED.CALL LIGHT IN REACH,NEEDS MET. PM CARE DONE EARLIER. NO OTHER SIGNIFICANT CHANGE IN CONDITION. ENDORSED TO NEXT SHIFT FOR JEAN CARLOS.
[2017-11-16 20:00] VITALS: BP 126/57
[2017-11-16] MEDS: ENOXAPARIN SODIUM 40 MG/0.4 ML DISP.SYRIN SQ SCH (21:35)
[2017-11-16] MEDS: *INSULIN REGULAR(HUMULIN R)HUM 100 UNIT/ML VIAL SQ PRN (21:40)
[2017-11-17] MEDS: IPRATROPIUM NEB FS 0.5 MG/2.5 ML AMPUL.NEB NEB SCH ×5 (03:12→19:33)
[2017-11-17] MEDS: ALBUTEROL FS 2.5 MG/0.5 ML VIAL.NEB NEB SCH ×5 (03:12→19:33)
[2017-11-17 04:02] VITALS: BP 141/59
[2017-11-17 06:39] LABS: CALCIUM, SERUM 9.1 mg/dL (8.5-10.1); CHLORIDE 94 mmol/L (98-107); CREATININE 1.3 mg/dL (0.6-1.3); GLUCOSE 138 mg/dL (74-106); POTASSIUM 3.2 mmol/L (3.5-5.1); SODIUM SERUM 139 mmol/L (136-145); UREA NITROGEN, BLOOD 62 mg/dL (7-18)
[2017-11-17 06:44] LABS: BASOPHILS % (AUTO) 0.2 % (0.0-2.0); CARBON DIOXIDE 40 mmol/L (21-32); EOSINOPHILS % (AUTO) 0.5 % (0.0-6.0); HEMATOCRIT 43 % (33-45); HEMOGLOBIN 14.2 g/dL (11.5-14.8); LYMPHOCYTES # (AUTO) 2.9 /CMM (0.8-4.8); LYMPHOCYTES % (AUTO) 19.9 % (20.0-44.0); MEAN CORPUSCULAR HGB CONC 33 g/dl (31.0-36.0); MEAN CORPUSCULAR VOLUME 89 fL (82-100); MONOCYTES # (AUTO) 1.6 /CMM (0.1-1.30); MONOCYTES % (AUTO) 10.8 % (2.0-12.0); NEUTROPHILS % (AUTO) 68.6 % (43.0-81.0); PLATELET COUNT (AUTO) 406 /CMM (150-450); RDW COEFFICIENT OF VARIATION 15.6 (11.5-15.0); RED BLOOD CELL COUNT(AUTO) 4.87 MIL/uL (4.0-5.2); WHITE BLOOD COUNT (AUTO) 14.5 K/uL (4.3-11.0)
--- NOTE | 2017-11-17 07:33 | NUR ---
MS RN NOTES PATIENT RECEIVED RESTING INSIDE ROOM. AWAKE, ALERT AND ORIENTED, VERBALLY RESPONSIVE AND RESPONDS TO VERBAL AND TACTILE STIMULI. BREATHING EVEN AND UNLABORED. ON O2 AT 2L/MIN, NO SOB OR ACUTE DISTRESS NOTED. PATIENT DENIES ANY PAIN OR DISCOMFORT AT THIS TIME. NO CHANGES IN LOC NOTED. WILL CONTINUE TO MONITOR. BED LOCKED AND IN LOW POSITION. BILATERAL UPPER SIDE RAILS UP AND LOCKED. CALL LIGHT WITHIN EASY REACH
[2017-11-17 08:00] VITALS: BP 118/52
[2017-11-17] MEDS: ACETYLCYSTEINE 20% SOLN 800 MG/4 ML VIAL NEB SCH ×2 (08:11→15:13)
[2017-11-17] MEDS: BLOOD SUGAR DIAGNOSTIC 1 EACH STRIP VI SCH ×3 (08:14→17:19)
[2017-11-17] MEDS: INSULIN REGULAR, HUMAN 100 UNIT/ML 3 ML VIAL SQ PRN ×3 (08:17→17:19)
[2017-11-17] MEDS: LOSARTAN POTASSIUM 50 MG TABLET PO SCH (08:18)
[2017-11-17] MEDS: MONTELUKAST SODIUM (10MG) 10 MG TABLET PO SCH (08:18)
[2017-11-17] MEDS: VALSARTAN 80 MG TABLET PO SCH (08:18)
[2017-11-17] MEDS: DULOXETINE HCL 30 MG CAPSULE.DR PO SCH (08:18)
[2017-11-17] MEDS: LEVOTHYROXINE SODIUM 75 MCG TABLET PO SCH (08:18)
[2017-11-17] MEDS: FUROSEMIDE 40 MG TABLET PO SCH (08:18)
[2017-11-17] MEDS: HYDROCHLOROTHIAZIDE 25 MG TABLET PO SCH (08:18)
[2017-11-17] MEDS: PYRIDOXINE HCL 50 MG TABLET PO SCH (08:18)
[2017-11-17] MEDS: AMLODIPINE BESYLATE 5 MG TABLET PO SCH (08:19)
[2017-11-17] MEDS ORDERED: methylPREDNISolone SOD SUCC 40 MG/ML VIAL IV SCH (09:00)
[2017-11-17] MEDS: POTASSIUM CHLORIDE 20 MEQ TAB.PRT.SR PO SCH ×2 (09:27→10:16)
[2017-11-17 16:00] VITALS: BP 129/53
--- NOTE | 2017-11-17 18:44 | NUR ---
MS RN NOTES PATIENT RESTING INSIDE ROOM, AWAKE, ALERT AND ORIENTED. VERBALLY RESPONSIVE AND RESPONDS TO VERBAL AND TACTILE STIMULI. BREATHING EVEN AND UNLABORED. NO SOB OR ACUTE DISTRESS NOTED. NO CHANGES IN LOC NOTED. PATIENT AFEBRILE, SKIN DRY AND WARM TO TOUCH. PATIENT REMAINS CALM AND RELAXED. WILL ENDORSE TO INCOMING SHIFT FOR JEAN CARLOS. BED LOCKED AND IN LOW POSITION. BILATERAL UPPER SIDE RAILS UP AND LOCKED. CALL LIGHT WITHIN EASY REACH
[2017-11-17] MEDS ORDERED: FURO40TA5 PO (18:48)
[2017-11-17] MEDS ORDERED: ALBU2.5V13 NEB (18:48)
[2017-11-17] MEDS ORDERED: POTA20TA83 PO (18:48)
[2017-11-17] MEDS ORDERED: ENOX40DI SQ (18:48)
[2017-11-17] MEDS ORDERED: METH4TAB17 PO (18:48)
[2017-11-17] MEDS ORDERED: ACET200V4 NEB (18:48)
--- NOTE | 2017-11-17 19:30 | NUR ---
RN NOTES: RECEIVED ENDORSEMENT FROM LEO(RN) PATIENT IS FOR TRANSFER TO CT 2 ROOM 205-2 AND FOR POSSIBLE DISCHARGE TODAY.
[2017-11-17 20:00] VITALS: BP 140/56
--- NOTE | 2017-11-17 20:00 | NUR ---
RN NOTES; PER CN/RN/VISHAL NO NEED TO TRANSFER PATIENT TO [facility], SHE WILL BE D/C TO [facility] AT 930PM, DISCHARGE PAPERS PREPARED, PATIENT UNABLE TO SIGN, CN AWARE.BELONGINGS KEPT READY AT BED SIDE.
[2017-11-17] MEDS: ENOXAPARIN SODIUM 40 MG/0.4 ML DISP.SYRIN SQ SCH (21:00)
--- NOTE | 2017-11-17 21:00 | NUR ---
RN NOTES: PATIENT REFUSED FOR LOVENOX INJECTION, SHE IS FOR TRANSFER IN [facility].
--- NOTE | 2017-11-17 21:13 | NUR ---
RN NOTES: -ENDORSEMENT GIVEN TO [facility] STAFF AT 2051 REGARDING PATIENT CONDITION,LATEST V/S WITHIN NORMAL RANGE. -2052- SON JAVID NOTIFIED PATIENT WILL BE D/C TO [facility]. -IV CANNULA REMOVED, BELONGINGS GIVEN AND ENDORSED TO [facility] STAFF-DEANGELO AT 2099. -PATIENT LEFT [facility]OH AND TRANSFERRED TO [facility] AT 2114. Addendum: 11/17/17 at 2127 by RAMÓN PACHECO RN RN NOTES: ENDORSED PATIENT SKIN IS INTACT AND FWW SEND WITH PATIENT.
[2017-11-18] MEDS ORDERED: POTASSIUM CHLORIDE 20 MEQ TAB.PRT.SR PO SCH (09:00)
== END 2017-11-17 21:15 | DRG 291 ==
LOC: ER 10:18 → ICU 12:34 → TELE1 11-13 18:17 → MEDSG1 11-14 10:48
PROVIDERS: ADMIT Hospitalist; ATTEND Hospitalist
PROC: 5A09357 Assistance with Respiratory Ventilation, Less than 24 Consecutive Hours, Continuous Positive Airway Pressure (ICD-10-PCS; principal; 2017-11-12)
DX: I11.0 Hypertensive heart disease with heart failure (principal); J96.01 Acute respiratory failure with hypoxia; J96.02 Acute respiratory failure with hypercapnia; E66.2 Morbid (severe) obesity with alveolar hypoventilation; E83.42 Hypomagnesemia; E11.65 Type 2 diabetes mellitus with hyperglycemia; I49.5 Sick sinus syndrome; J45.901 Unspecified asthma with (acute) exacerbation; Z68.41 Body mass index [BMI] 40.0-44.9, adult; J44.1 Chronic obstructive pulmonary disease with (acute) exacerbation; I50.33 Acute on chronic diastolic (congestive) heart failure; I48.91 Unspecified atrial fibrillation; I25.10 Atherosclerotic heart disease of native coronary artery without angina pectoris; Z79.84 Long term (current) use of oral hypoglycemic drugs; Z79.82 Long term (current) use of aspirin; G30.9 Alzheimer's disease, unspecified; Z79.899 Other long term (current) drug therapy; F02.80 Dementia in other diseases classified elsewhere, unspecified severity, without behavioral disturbance, psychotic disturbance, mood disturbance, and anxiety; E03.9 Hypothyroidism, unspecified; I25.2 Old myocardial infarction; M10.9 Gout, unspecified
CPT/HCPCS: 36415; 36600; 71045-TC; 80048-TC; 80053-TC; 80061-TC; 80076-TC; 82803-TC; 82962-TC; 83605-TC; 83735-TC; 83880; 84100-TC; 84439-TC; 84443-TC; 84484-TC; 85025-TC; 85730-TC; 87040-TC; 87081-TC; 93307-TC; 94799-TC; 97112-TC; 97116-TC; 97530-TC; A4606; C9113; J1650; J1815; J1940; J2920; J2930; J3475; Z7610

== ENCOUNTER 2017-12-06 10:26 | Outpatient (CLI) | payer MEDICARE, MEDICAID ==
[~2017-12-06 10:26] MED LIST changes: +ACET200V4 NEB; +ALBU2.5V13 NEB; -ASPI-1169 PO; -CARV12.52 PO; -CHOL100044 PO; -CLON0.1T PO; -COLC0.6T67 PO; -DICY10CA13 PO; -DOCU-141 PO; +ENOX40DI SQ; -FLUT1DIS3 IH; -FOLI1TAB16 PO; +FURO40TA5 PO; -GLIM2TAB2 PO; -IBUP-1955 PO; -LINA145C PO; -MECL-138 PO; -MELO-107 PO; -MEMA1CAP2 PO; +METH4TAB17 PO; -MYRBETRIQ PO; +POTA20TA83 PO; -PRED20TA PO; -SITA1TAB6 PO; -TRIA0.252 PO; -VORT10TA PO
== END 2017-12-06 23:59 | disposition home or self-care (01) ==
LOC: CT 10:26
PROVIDERS: ATTEND Internal Medicine
DX: M85.872 Other specified disorders of bone density and structure, left ankle and foot (principal); M19.072 Primary osteoarthritis, left ankle and foot; R60.1 Generalized edema
CPT/HCPCS: 73700-TC

== ENCOUNTER 2017-12-06 12:25 | Outpatient (CLI) | payer OTHER, MEDICARE, MEDICAID | END 2017-12-06 23:59 | LOC: WOU 12:25 | PROVIDERS: ATTEND Podiatrist Foot & Ankle Surgery | DX: M19.079 Primary osteoarthritis, unspecified ankle and foot (principal); M72.2 Plantar fascial fibromatosis; I83.90 Asymptomatic varicose veins of unspecified lower extremity; I80.9 Phlebitis and thrombophlebitis of unspecified site; E11.9 Type 2 diabetes mellitus without complications; Z79.82 Long term (current) use of aspirin; Z79.899 Other long term (current) drug therapy; Z79.84 Long term (current) use of oral hypoglycemic drugs; S92.912D Unspecified fracture of left toe(s), subsequent encounter for fracture with routine healing; X58.XXXD Exposure to other specified factors, subsequent encounter | CPT/HCPCS: G0463; Z7610; A6402 ==

== ENCOUNTER 2017-12-13 09:41 | Outpatient (CLI) | payer OTHER, MEDICARE, MEDICAID | END 2017-12-13 23:59 | disposition home or self-care (01) | LOC: WOU 09:41 | PROVIDERS: ATTEND Podiatrist Foot & Ankle Surgery | DX: I87.2 Venous insufficiency (chronic) (peripheral) (principal); R60.0 Localized edema | CPT/HCPCS: 93925; 93970; Z7610 ==

== ENCOUNTER 2017-12-15 09:54 | Outpatient (CLI) | payer MEDICARE, MEDICAID ==
[~2017-12-15 09:54] MED LIST changes: +AMLO5TAB2 PO; -AMLO5TAB7 PO
== END 2017-12-15 23:59 ==
LOC: WOU 09:54
PROVIDERS: ATTEND Podiatrist Foot & Ankle Surgery
DX: Z51.89 Encounter for other specified aftercare (principal); I87.8 Other specified disorders of veins; R60.0 Localized edema
CPT/HCPCS: G0463; Z7610